=== PATIENT | female | born 1990 | race Caucasian/White ===

== ENCOUNTER 2022-11-18 11:45 | Outpatient (CLI) | payer BC, SELFPAY | END 2022-11-18 11:46 | disposition home or self-care (01) | LOC: NFLDREF 11:47 | PROVIDERS: Visit Provider Advanced Practice Midwife | DX: Z01.419 Encounter for gynecological examination (general) (routine) without abnormal findings (principal); N89.8 Other specified noninflammatory disorders of vagina; Z13.6 Encounter for screening for cardiovascular disorders | CPT/HCPCS: 80061 ==

== ENCOUNTER 2024-02-02 09:55 | Outpatient (CLI) | payer OTHER, SELFPAY | END 2024-02-02 09:56 | disposition home or self-care (01) | LOC: NFLDUCREF 10:03 | DX: R00.2 Palpitations (principal) | CPT/HCPCS: 84484; 85379 ==

== ENCOUNTER 2024-07-15 08:09 | Outpatient (CLI) | payer BC, SELFPAY ==
--- NOTE | 2024-07-15 08:15 | CRLHL7_ITS ---
For Patients: As a result of the Cures Act, medical imaging exams and procedure reports are released immediately into your electronic medical record. You may view this report before your referring provider. If you have questions, please contact your health care provider. OB ULTRASOUND INDICATION: Dating, viability. TECHNIQUE: Real time grayscale imaging of the fetus was performed. Transvaginal. LMP: 05/13/2024. JOHANN by LMP: 02/17/2025. GA: 9 w, 0 d. Previous US: No. CRL: 3.0 cm. 9 w 6 d. JOHANN: 02/11/2025. FHR: 180 BPM. Gestational sac: 4.2 cm. Appears within normal limits. Yolk sac: 4.5 mm. Appears within normal limits. Right ovary: 2.9 x 1.2 x 1.8 cm. Left ovary: 3.8 x 1.6 x 2.2 cm. CL. IMPRESSION: Single living intrauterine measuring 9 weeks 6 days and sonographic due date 02/11/2025. Fundal subchorionic hemorrhage measures 2.6 x 1.8 x 1.9 cm. Additional subchorionic hemorrhage is present measuring 2.3 x 1.4 x 1.5 cm. Emeterio Corona M.D. Diagnostic Radiologist [email or web address] BRYSON/paola guevara/Dictated by: Emeterio Corona MD @ 07/15/2024 10:54:00 AM (Electronically Signed)
== END 2024-07-15 08:10 | disposition home or self-care (01) ==
LOC: US 08:09
PROVIDERS: PCP Registered Nurse; Visit Provider Registered Nurse
DX: Z34.91 Encounter for supervision of normal pregnancy, unspecified, first trimester (principal); O20.9 Hemorrhage in early pregnancy, unspecified; Z3A.09 9 weeks gestation of pregnancy
CPT/HCPCS: 76817; 82565; 82570; 83021; 84156; 84450; 84460; 84520; 86592; 86703; 86704; 86706; 86762; 86787; 86803; 86850; 86900; 86901; 87086; 87340

== ENCOUNTER 2024-07-18 06:30 | Outpatient (CLI) | payer BC, SELFPAY | END 2024-07-18 06:31 | disposition home or self-care (01) | LOC: NFLDREF 07-19 21:47 | PROVIDERS: PCP Registered Nurse; Referring Provider Registered Nurse; Visit Provider Registered Nurse | DX: Z01.31 Encounter for examination of blood pressure with abnormal findings (principal) | CPT/HCPCS: 82570; 84156 ==

== ENCOUNTER 2024-11-22 09:30 | Outpatient (CLI) | payer BC, SELFPAY | END 2024-11-22 09:31 | disposition home or self-care (01) | LOC: NFLDREF 11-24 06:23 | PROVIDERS: Visit Provider Advanced Practice Midwife | DX: Z34.83 Encounter for supervision of other normal pregnancy, third trimester (principal) | CPT/HCPCS: 86592 ==

== ENCOUNTER 2024-12-12 17:57 | Outpatient (CLI) | payer BC, SELFPAY ==
[2024-12-12 18:19] VITALS: BP 125/81; PULSE 101; PULSE 96; O2SAT 98
[2024-12-12 18:21] VITALS: RESP 18; TEMP 36.9
--- NOTE | 2024-12-12 18:26 | CRLHL7_ITS ---
For Patients: As a result of the Century Cures Act, medical imaging exams and procedure reports are released immediately into your electronic medical record. You may view this report before your referring provider. If you have questions, please contact your health care provider. INDICATION: Vaginal bleeding in the setting of . History of placenta previa. COMPARISON: No recent prior comparison examination is available. Comparison is made to a study dated 07/15/2024. TECHNIQUE: Transabdominal and endovaginal grayscale and limited color Doppler ultrasound were performed. FINDINGS: Jeffries fetus in cephalic presentation. Anterior placenta. Amniotic fluid is normal with the deepest vertical pocket measuring 4.9 cm. heart rate is 130 beats per minute. The cervix is closed and measures 3.5 cm in length on the endovaginal component of the examination. There is a finding overlying the internal cervical os that is in continuity with an isoechoic to the anterior placenta as demonstrated on the transverse endovaginal cine clip. This is consistent with placenta previa. Incidental note is made of a 6 mm nabothian cyst within uterine cervix near the external os. IMPRESSION: Placenta previa. The cervix is closed and measures 3.5 cm in length. Dictated by Yomi Hermosillo MD @ 12/12/2024 8:16:12 PM (Electronically Signed)
--- NOTE | 2024-12-12 19:25 | W.PM.OBTRAN ---
History of Present Illness History of Present Illness Date Seen: 12/12/24 History of Present Illness: 34 year old at 31.2 weeks gestation by 1st trimester US, JOHANN 02/11/25, presents with vaginal bleeding. Isabel had bleeding that started around 1700 this evening that was scant but persisted on both a pad and with wiping. Denies clots. Reactive NST obtained. Some contractions noted on tracing after TV US was performed but she denies feeling. Appreciating good movement. States she might have a very scant amount of very light cramping but only feels it if she pays close attention. On TV US the cervix was long and closed. There was an area of bleeding noted that was about 3.5cm x 0.9cm. Decision was made to transfer to a higher level of care with NICU care and additional blood products available. Initially called [facility]. Spoke to Dr. Patricia and she recommended transferring to [facility] instead as they have a previa team. Dr. Estrella at [facility] was the accepting provider there. Will administer betamethasone IM and PO nifedipine 20mg before transfer. Baby moving naturally: Yes Bleeding: Yes Contractions: Yes (but denies feeling) Leaking fluid: No Discharge: No Heartburn: No Back pain: No Meds Home Medications and Allergies Home Medications ?Medication ?Instructions ?Recorded ?Confirmed ?Type cholecalciferol (vitamin D3) 10 10 mcg PO QDAY 11/18/22 12/12/24 History mcg (400 unit) capsule docosahexaenoic acid 200 mg mg PO 07/15/24 12/06/24 History capsule ( DHA) aspirin 81 mg chewable tablet 81 mg PO QDAY 08/12/24 12/12/24 History psyllium husk 0.4 gram capsule 0.4 g PO ONCE 09/12/24 12/12/24 History (Daily Fiber) ferrous sulfate 325 mg (65 mg 325 mg PO Q OTHER DAY 12/06/24 12/12/24 History iron) tablet (Feosol) Allergies Allergy/AdvReac Type Severity Reaction Status Date / Time Penicillins Allergy Unknown Joint Pain Verified 12/12/24 18:16 Sulfa (Sulfonamide AdvReac Unknown Rash Verified 12/12/24 18:16 Antibiotics) [facility] Medical History Vaginal delivery ?O80 - Encounter for full-term uncomplicated delivery (ICD-10) Surgical History Mousie teeth removed ?K08.409 - Partial loss of teeth, unspecified cause, unspecified class (ICD-10) Family History Grandmother Myocardial infarction Non-Hodgkin lymphoma Diabetes Paternal Grandmother Parkinsons Father High blood pressure High cholesterol Sarcoidosis Thyroid disease Grandfather Diabetes Sister Diabetes HELLP (hemolytic anemia/elev liver enzymes/low platelets in ) Social History Narrative: SOCIAL HISTORY: Education: PhD 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 Partner: Ming Relationship status Lives with: Ming and 2 kids, 2dogs and 2 cats Abuse: Denies past/present Special Diet: denies RISK FACTORS Exercise Times/wk: Depression/Anxiety: denies, some PP anxiety which resolved on its own Seat Belt Use: Smoking: Denies Alcohol/day: none currently Drug Use: Denies past/present What is your current living situation?: I presently have a place to live Problems where you live: no known problems In the past 12 months, utilities in danger of being shut off: no In past 12 months, lack of transportation kept you from medical appts, meetings, work, or getting things needed for daily living: no How hard is it for you to pay for the very basics like food, housing, medical care, and heating: not very hard In the past 12 mos, have been you worried that your food would run out before you had money to buy more?: never true In the past 12 mos, the food you bought just didn't last and you didn't have money to buy more?: never true Smoking Status: Never smoker How often does anyone, including family, friends and others, physically hurt you: never How often does anyone, including family, friends and others, insult or talk down to you: never How often does anyone, including family, friends and others, threaten you with harm: never How often does anyone, including family, friends and others, scream or curse at you: never History History 3 Elective abortions Para 2 Spontaneous abortions Hx # Term Pregnancies Ectopic pregnancies Hx # Pregnancies Multiple births Number of Living Children 2 Past Pregnancies Del. Date GA/Weeks Outcome Route wt Inf Gender Labor Lgth Anesthesia Location Provider Compli 11/27/17 39 live - full term 7 lb 7.5 oz Male none 10/18/20 39 live - full term 7 lb 14 oz Female none Delivery Date: 10/18/20 Last Updated by: Eva Shirley CNP Precipitous OB - H&P: Exam Physical Exam Vital signs: Temp Pulse Resp BP Pulse Ox 98.4 F 101 H 18 125/81 98 12/12/24 18:21 12/12/24 18:19 12/12/24 18:21 12/12/24 18:19 12/12/24 18:19 Narrative: Psychiatric:? Alert and oriented x3? HEENT:? Normocephalic, atraumatic? Neck:? Supple Lungs:? Clear to auscultation bilaterally? Heart:? Regular rate and rhythm, no murmur, rub or gallop? Abdomen:? Soft, nontender, and gravid? Extremities:? No edema or erythema? Detailed Labor and Delivery Exam Patient Gravid: yes Contraction frequency (min): 4 Tachysystole: No Contraction intensity: Mild Fetus (Single) Amniotic Membrane Status: intact Heart Rate Baseline: 135 Monitor Accelerations: Present Monitor Decelerations: None Alf Variability: Moderate (6-25) Results Ultrasound Ultrasound Impression: Tech report from 12/12/24: Single IUP, cervix 3.5cm and closed, FHR 130, hemorrhage LT of internal OS 3.5x1.2cm, previa persists post/left wall. Assessment and Plan Assessment and plan (1) Placenta previa: Status: Acute (2) Vaginal bleeding in patient after first trimester with placenta previa: Status: Acute (3) Advanced maternal age in multigravida: Status: Acute (4) Anemia: Status: Acute (5) History of precipitous delivery: Status: Acute Plan Transfer to [facility] with accepting provider Dr. Estrella. Transfer provided by EMS. Administer IM betamethasone and 20mg nifedipine before transfer. Establish IV access before transfer. Total time spent Total time spent: 45 min
[2024-12-12 19:27] VITALS: PULSE 77; O2SAT 97
[2024-12-12 19:32] VITALS: PULSE 98; O2SAT 100
[2024-12-12] MEDS: BETAMETHASONE SOD PHOS/ACETATE 6 MG/ML ML 12 MG IM (20:20)
[2024-12-12 20:50] VITALS: BP 130/66; PULSE 86; RESP 16; TEMP 36.9
[2024-12-12 20:51] VITALS: PULSE 85; O2SAT 99
--- NOTE | 2024-12-12 21:55 | PC.OBNST ---
NST Note NST Note Start: 12/12/24 18:03 Freq: ONCE Status: Active Protocol: Document 12/12/24 21:53 HONORIO (Rec: 12/12/24 21:55 HONORIO No Response) NST Note 3 Para (# of births) 2 EDC 02/11/25 Gestational Age In 31 Weeks & 2 Days Weeks & Days Patient Presented Contractions/cramping,Vaginal bleeding with Complaint(s) of Reactive Yes Appropriate for Yes Gestational Age ALTON Venegas RN Date 12/12/24 Reactive Yes Appropriate for Yes Gestational Age ALTON Beatty RN Date 12/12/24 OB NST charge Yes Complete NST Note Yes via Write Note The provider's electronic signature indicates the NST is reactive/appropriate for gestational age. *Note to provider: If an addendum is required, open the patient's chart and click on the note under the Nurse/Allied Health tab.
== END 2024-12-12 21:01 ==
LOC: OB OUT 17:57 → OB 17:58
PROVIDERS: Visit Provider Advanced Practice Midwife
DX: O47.03 False labor before 37 completed weeks of gestation, third trimester (principal); O46.93 Antepartum hemorrhage, unspecified, third trimester; Z3A.31 31 weeks gestation of pregnancy
CPT/HCPCS: 59025; 76815; 76817; 85025; G0463; A9270; J0702

== ENCOUNTER 2024-12-12 21:04 | Outpatient (CLI) | payer BC, SELFPAY | END 2024-12-12 21:05 | disposition home or self-care (01) | PROVIDERS: Visit Provider Emergency Medicine Emergency Medical Services | DX: O44.13 Complete placenta previa with hemorrhage, third trimester (principal); Z3A.31 31 weeks gestation of pregnancy | CPT/HCPCS: A0425; A0429 ==

== ENCOUNTER 2025-01-03 10:24 | Outpatient (CLI) | payer BC, SELFPAY | END 2025-01-03 10:25 | disposition home or self-care (01) | LOC: NFLDREF 10:28 | PROVIDERS: Visit Provider Obstetrics & Gynecology | DX: Z34.93 Encounter for supervision of normal pregnancy, unspecified, third trimester (principal) | CPT/HCPCS: 86694; 86695; 86696; 87081; 87491; 87591; 87653 ==

== ENCOUNTER 2025-01-16 05:54 | Inpatient (IN) | payer BC, SELFPAY ==
[2025-01-16] VITALS (18 sets, daily range): BP systolic 107–143; BP diastolic 52–103; PULSE 62–83; RESP 18; TEMP 36.4–36.9; O2SAT 95–99; BMI 31.9
[2025-01-16] MEDS: LACTATED RINGERS 1000 ML 1,000 ML 999 ML IV (06:38)
[2025-01-16 06:39] LABS: Hemoglobin* 10.6 gm/dL (12.0-16.0)
--- NOTE | 2025-01-16 07:20 | W.PM.LDBA ---
Subjective History of Present Illness Time Seen by Provider: 07:20 Date Seen: 01/16/25 Narrative: Patient is being admitted to Labor and Delivery for primary delivery. She is a 34 year old at 36.2 weeks gestation due to complete placenta previa. Her full history and physical was dictated by Dr. Jacobs on 01/09/25. Please see this for details. Active movement. Denies Ctx, LOF, vaginal bleeding or abnormal vaginal discharge. Specific Issues/Plans G 3 P 2001 Pt felt her last labor there was not good communication and things were done that she was not aware of. Wants good communication during her labor. : Ming H&P done 01/09/[address] Jacobs. # Complete Placenta Previa at 20 wk US pelvic rest follow up at 28 weeks with [facility]-11/18/24- Persistent previa. Bleeding at 31 weeks. follow up at 32 weeks with [facility]- 12/20/24- complete previa follow up at 35 weeks scheduled with [facility] Recommend delivery at 36.0-37.6 weeks but early side of that range per [facility]. Type and cross 2 units PRBCs upon admission. #Considering vaginal seeding - Explained not ACOG recommended [x] GC/chlamydia, HSV serologies and GBS obtained/sent on 01/03. HSV testing inconclusive (positive combination screen, negative subgroup testing). Patient will forego vaginal seeding. # Vaginal bleeding at 31wks. Transferred to [place] Received 2 doses of Betamethasone. # Measuring large for gestational age, [facility] recommended changing JOHANN to first trimester US date EFW >99% even with dating adjusted Growth at 28 weeks EFW >99% at 32wks. AC >99%, # Precipitous . Patient reports she delivered 2 hours after waking up with contractions with her 2nd baby. # Anemia Hgb 10.7 at 28 weeks- started iron supplement got 2 iron infusions while inpatient at - stopped oral supplement Hgb 34 weeks: don't collect due to IV iron transfusion 12/15 - done erroneously, 10.9 Received iron transfusion at [place] with hospitalization. # Advanced maternal age NIPT: low risk Level 2 ultrasound order placed Daily low-dose aspirin starting at 12 weeks to reduce risk of preeclampsia due to AMA and sister with a history of HELLP # Subchorionic hemorrhage x2 Awaiting last delivery notes from [place] in 2021. Imagin11/18/24: 27w6d TVUS f/u-persistent previa, limited anatomy survey normal, EFW 96%, normal ELISABETH 01/10/2025 MFM: Anterior/left lateral complete placenta previa, MVP 6.4 cm, EFW 3281 g (95%), AC >99%. Vaccinations: COVID: 10/31/24 () - Pt would like [id number] when she can get updated version. Can't get until 01/31/25 - 3 months per Zeeshan Flu: 12/14/2024 - when she was in the hospital - date per WENDI Tdap: 11/05/24 RSV: 12/20/2024 GBS negative 32 week mental health: 12/20/2024 Last pap: [Only high-risk abnormal pap results in problem list] OB - Problem Based A/P Additional Plan (1) Placenta previa: Status: Acute (2) : Status: Acute (3) Advanced maternal age in multigravida: Status: Acute Plan - Reviewed surgical consent with patient. She understands that the four main categories of risk include pain, bleeding, infection, and damage to surrounding structures. Intraoperative pain will be manage with spinal anesthesia or epidural anesthesia. If that those are not effective or not appropriate for the clinical situation, general anesthesia will be administered. Immediately postop, TAP block will be performed. Anesthesia team will reviewed this in further details with her. Throughout her recovery course, she will have on PO pain medications such as ibuprofen, Tylenol, and oxycodone. Patient is hoping to avoid oxycodone. Reassured her that she does not need to take it if she does not want to but encouraged her to treat her pain. Regarding infection, she understands that we will be delivering appropriate antibiotics, however that the risk of infection following section still is approximately 5%. She understands that though the risk is very low that there is always a risk of damage to the bladder, uterus, ovaries, fallopian tubes, bowels, ureters, or even the fetus (<1%). She understands that most injuries can be addressed at the time of surgery, however, such an injury may require additional surgeries to fix. She understands that a section carries a risk of bleeding (1-5% risk of hemorrhage), and that while this bleeding can be addressed with multiple medical and surgical modalities (including hysterectomy), that there is the possibility of needing a blood transfusion (0.5-3%). For her there is a high risk of blood loss given where her placenta is. She does have 2 u pRBC types and crossed. She understands that a section does increase risks for future pregnancies and deliveries including, but not limited to, the risk of uterine rupture or placenta accreta. Lastly, VTE after delivery rate is around <1%. Will decrease this risk with SCD use, early ambulation, and thromboprophylaxis medication if needed. We also reviewed postoperative care, recovery, and restrictions. All questions answered to patient's satisfaction and the best of my abilities. Consent form signed and will proceed with delivery via section. - Hgb 10.6 gm/dL - Plt 185 K/uL - T&S: A+, antibody negative - Plan: Will proceed with primary delivery. OB Exam Physical Exam Vital signs: Pulse BP Pulse Ox 80 128/57 L 98 01/16/25 06:17 01/16/25 06:17 01/16/25 06:17 Narrative: Physical exam: General: No acute distress Psych: Alert and oriented x3, full affect HEENT: Normocephalic, atraumatic Lungs: Unlabored breathing Neuro: No focal deficit. Mentating appropriately Pelvic exam: Deferred
[2025-01-16 07:24] LABS: Hematocrit* 31.7 % (33.0-51.0); Hemoglobin* 10.6 gm/dL (12.0-16.0); Immature Granulocytes Abs Auto 0.02 K/uL (0.00-0.30); Immature Granulocytes Pct Auto 0.2 %; Lymphocytes Absolute Auto 2.82 K/uL (0.90-2.90); Mean Corpuscular HGB Conc 33 gm/dL (32-36); Mean Corpuscular Hemoglobin 29 pg (26-34); Mean Corpuscular Volume 88 fL (80-100); RDW Coefficient of Variation % 14.5 % (11.5-15.5); Red Blood Count* 3.61 m/uL (4.00-5.20); White Blood Count* 9.58 K/uL (4.50-11.00)
[2025-01-16 07:26] LABS: Slide Review Reflex No
[2025-01-16] MEDS: LACTATED RINGERS 1000 ML 1,000 ML 150 ML IV (07:35)
--- NOTE | 2025-01-16 08:34 | P.OBPRC_ITS ---
Procedure Time Seen by Provider: 07:00 Date of procedure: 01/16/25 Will [facility] bill your pro fee for this procedure?: Yes Procedure Description: DELIVERY BY SECTION Date of Service: 01/16/25 Delivery time: 0756 Summary: Admitted for scheduled delivery at 36.2d, Primary Lower uterine transverse section, Pfannenstiel, Closed with sutures, QBL 873 cc, No complications, Findings: Normal uterus, bilateral ovaries and tubes. Placenta previa noted. 75% of placenta delivered spontaneous with steady cord traction. 25% of placenta delivered via manual sweep. 8/9, weight 2950 g. Primary Indication: 1. Complete placenta previa Procedures: Primary Lower uterine transverse section Specimens Removed: Placenta Surgeon: Bev Parada MD Director Of Strategic Alliances: CRISTÓBAL Murray Anesthesia: Spinal Report: Prophylactic antibiotic, 2 g of Ancef was given before patient was taken to OR. After arrival to the operating room patient was placed in the supine position with left lateral tilt after administration of spinal anesthesia. She was prepped and draped in the usual sterile manner. Laparotomy A pfannenstiel incision was made through the anterior abdominal wall with #10 scalpel approximately 2 cm above the pubic symphysis. The incision was extended sharply with the #10 scalpel through the subcutaneous tissue to the level of fascia. The fascia was entered sharply with a #10 scalpel (Pfannenstiel) in the midline and extended in semi-elliptical fashion bluntly with digits. The rectus muscles were in the midline bluntly with digits. The peritoneum was then entered bluntly. The peritoneal incision was then extended superiorly and inferiorly under direct visualization with care being taken to avoid bladder and bowel. No adhesions were noted. The peritoneal incision was enlarged bluntly by lateral traction from the surgeon's and assistant professor of anthropology's hand. Maxx retractor was inserted into the abdomen. Delivery A bladder flap was developed by grasping with Indonesian forcep and enter with Metzenbaun scissor. Then sharp and blunt dissection with Metzenbaum scissor and fingers were performed. A low transverse hysterotomy was made then with #10 scalpel and extended laterally and cephalad with fingers in a low transverse fashion with Manu Sal technique with care being taken to avoid injury to the fetus. Anterior placenta was in the way. I wrapped my hand around to bring head to the hysterotomy. The amniotic cavity (membrane) was then entered with spontaneous rupture of membrane, and the amniotic fluid was noted to be clear, fetus was delivered cephalic. With delivery of the baby, no extension was noted. 75% of Placenta was delivered spontaneously with steady traction on cord and the 25% of the placenta on the left uterine corner required a manual sweep for separation of placenta from uterine wall. Closure Uterine cavity was cleaned after placental delivery with lap sponge x 4. No excessive bleeding noted. The hysterotomy was closed in two layers with stitches using 0 vicryl with continuous locking stitches and 0 monocryl in a continuous non locking manner. One figure [address] with 0 Vicryl in the middle of the hysterotomy. Hemostasis was achieved as needed with electrocautery. The ovaries/tubes/uterine surface were evaluated. They were found to be normal. Maxx retractor removed. Vitaly applied and hemostasis was confirmed again. Fascia was closed with running stitches using 0 vicryl. Subcutaneous layer was irrigated. Hemostasis was checked for and found to be adequate. The subcutaneous layer was closed with running 2-0 vicryl sutures. The skin was closed with 4-0 monocryl subcuticular sutures . The incision was cleaned, Exofin applied, and Mepilex dressing placed. The procedure considered terminate at this time. Intraoperative Complications: None QBL: 873 cc Uterotonics/hemostatic agents: 40 u of pitocin, 800 mcg of misoprostol, 1g of TXA Disposition: The patient tolerated the procedure well. She was recovered in Obstetric PACU for close monitoring in stable condition, with a contracted uterus and normal transvaginal bleeding. The infant was sent to mother?s bedside. The placenta was sent to pathology to rule of PAS. Debrief with OR team performed and specimen reviewed at the conclusion of the procedure.
[2025-01-16] MEDS: miSOPROStoL 800 MCG/4 TABLET PR (08:43)
--- NOTE | 2025-01-16 09:20 | P.ANES_ITS ---
Anesthesia Charges Start Date/Time Anesthesia Start Date: 01/16/25 Anesthesia Start Time: 07:27 Stop Date/Time Anesthesia Stop Date: 01/16/25 Anesthesia Stop Time: 09:02 Coding CPT Codes CPT Codes: ANESTH CS DELIVERY - 84629 ([id number]) P2 - PATIENT W/MILD SYST DISEASE, QK - LEVELER 2-4 CNCRNT ANES PROC, QX - CHIP MACHINE OPERATOR SVC W/ MD MED DIRECTION
--- NOTE | 2025-01-16 09:20 | W.ANESCHARGE ---
Anesthesia Charges Start Date/Time Anesthesia Start Date: 01/16/25 Anesthesia Start Time: 07:27 Stop Date/Time Anesthesia Stop Date: 01/16/25 Anesthesia Stop Time: 09:02 Coding CPT Codes CPT Codes: ANESTH CS DELIVERY - 94508 ([id number]) P2 - PATIENT W/MILD SYST DISEASE, QK - SUPERVISOR VENEER 2-4 CNCRNT ANES PROC, QX - SUPERVISOR GLYCERIN SVC W/ MD MED DIRECTION
--- NOTE | 2025-01-16 09:21 | P.NB_ITS ---
Nerve Block Nerve Block Time Seen by Provider: 08:45 Date Seen: 01/16/25 Type of block requested by surgeon for post-operative analgesia: TAP Side: bilateral Time out performed: Yes Verification of patient name: Yes Verification of date of : Yes Site marking: site marked Name of person performing procedure: RPS Continuous monitoring Was continuous monitoring of O2 sat, B/P, athletic monitor, recorded every 15 minutes?: Yes Procedure Checklist: sterile prep, needles and gloves Ultrasound guided. Images saved: Yes Medications given in 5ml increments after negative aspiration: Marcaine %: 0.25 mL: 30 and Exparel mL: 10 Patient tolerated procedure well: Yes Block Charges Block Charge (with Pro Fee): TAP Bilateral Use of Ultrasound Machine for Block: Yes- US Guidance/pain block
--- NOTE | 2025-01-16 09:39 | P.ANES_ITS ---
Anesthesia Charges Start Date/Time Anesthesia Start Date: 01/16/25 Anesthesia Start Time: 07:27 Stop Date/Time Anesthesia Stop Date: 01/16/25 Anesthesia Stop Time: 09:02 Coding CPT Codes CPT Codes: ANESTH CS DELIVERY - 63473 ([id number]) QK - QUILL REAMER 2-4 CNCRNT ANES PROC, QX - PROFESSOR OF LATIN AMERICAN STUDIES SVC W/ MD MED DIRECTION, P2 - PATIENT W/MILD SYST DISEASE
--- NOTE | 2025-01-16 09:39 | W.ANESCHARGE ---
Anesthesia Charges Start Date/Time Anesthesia Start Date: 01/16/25 Anesthesia Start Time: 07:27 Stop Date/Time Anesthesia Stop Date: 01/16/25 Anesthesia Stop Time: 09:02 Coding CPT Codes CPT Codes: ANESTH CS DELIVERY - 80829 ([id number]) QK - MALE IMPERSONATOR 2-4 CNCRNT ANES PROC, QX - CANNONEER SVC W/ MD MED DIRECTION, P2 - PATIENT W/MILD SYST DISEASE
[2025-01-16] MEDS: ACETAMINOPHEN 500 MG TABLET 1000 MG PO ×2 (12:05→17:55)
[2025-01-17] MEDS: ACETAMINOPHEN 500 MG TABLET 1000 MG PO ×4 (00:07→22:51)
[2025-01-17 00:10] VITALS: BP 121/79; PULSE 53; RESP 16; TEMP 36.6; O2SAT 97
[2025-01-17 04:57] VITALS: BP 111/71; PULSE 60; RESP 16; TEMP 36.6; O2SAT 98
[2025-01-17 07:02] LABS: Hemoglobin* 8.9 gm/dL (12.0-16.0)
--- NOTE | 2025-01-17 07:33 | P.OBPN_ITS ---
OB - PN:Subj Subjective Date Seen: 01/17/25 Narrative: Isabel is a 34 y.o. G 3 P 3 who was admitted to L & D for primary c/s for placenta previa. ?She had a section that was uncomplicated. The patient feels well. ?The pain is well controlled with current medications. ?She has no n ew complaints. ?She is breast feeding and reports things are going well. the patient has done well.? Vitals have been stable.? She has remained afebrile.? Has a good appetite, is tolerating a general diet. ?She is voiding without difficulty.? She is passing gas and has not had a bowel movement.? She is ambulating and denies any dizziness.? Has small amount of rubra lochia. Problems: Anemia OB - PN: Obj Exam Physical Exam: Vital signs: Temp Pulse Resp BP Pulse Ox O2 Del Method 97.9 F 60 16 111/71 98 Room Air 01/17/25 04:57 01/17/25 04:57 01/17/25 04:57 01/17/25 04:57 01/17/25 04:57 01/17/25 04:57 Narrative: GENERAL APPEARANCE:? normal affect, alert, no distress MOOD:? appropriate CHEST:? clear to auscultation HEART:? regular rate and rhythm ABDOMEN:? soft, non-tender the uterine fundus is At Umbilicus, Midline and is appropriate for the stage of recovery. EXTREMITIES:? normal and no edema INCISION: Dressing removed; Healing well, no surrounding erythema, abnormal induration or discharge OB - PN: Obj Data Labs Labs: Laboratory Results - last 24 hr 01/16/25 01/17/25 06:30 06:45 Hgb 8.9 L Blood Type A Positive Antibody Screen NEGATIVE Crossmatch (AHG) See Detail OB - PN: A/P Delivery Assessment and Plan (1) care and examination immediately after delivery: Status: Acute (2) Status post section: Status: Acute (3) Anemia due to acute blood loss: Status: Acute (4) Lactating mother: Status: Acute (5) Elevated blood pressure reading without diagnosis of hypertension: Status: Acute Plan day: 1 Plan: routine care Comments: Routine post-op , may see if needed? Hgb 8.9. Iron supplement ordered orally every other day? Elevated BP in recovery post c/s, has been normotensive since Will continue to monitor BP and do labs if indicated Anticipate discharge tomorrow or the following day?
[2025-01-17] MEDS: FERROUS SULFATE 325 MG TABLET PO (08:20)
[2025-01-17] MEDS: DOCUSATE SODIUM 100 MG CAPSULE PO (08:21)
[2025-01-17 08:30] VITALS: BP 121/76; PULSE 76; RESP 16; TEMP 36.8; O2SAT 97
[2025-01-17 14:53] VITALS: BP 114/69; PULSE 74; RESP 16; TEMP 36.6; O2SAT 97
[2025-01-17 16:57] VITALS: BP 123/81; PULSE 77; RESP 16; O2SAT 97
[2025-01-17] MEDS: IBUPROFEN 600 MG TABLET PO (21:06)
[2025-01-17 23:40] VITALS: BP 121/70; PULSE 73; RESP 16; TEMP 36.6; O2SAT 98
[2025-01-18] MEDS: IBUPROFEN 600 MG TABLET PO ×2 (03:58→10:17)
[2025-01-18] MEDS: ACETAMINOPHEN 500 MG TABLET 1000 MG PO (05:24)
[2025-01-18 07:47] VITALS: BP 117/71; PULSE 73; RESP 19; TEMP 36.8; O2SAT 96
[2025-01-18] MEDS: DOCUSATE SODIUM 100 MG CAPSULE PO (08:03)
--- NOTE | 2025-01-18 08:06 | P.DS_ITS ---
DS: Providers Provider Time Seen by Provider: 08:00 Date Seen: 01/18/25 Date of admission: 01/16/25 05:54 Primary care physician: Not a Local Provider Admitting Clinician: Bev Parada MD Attending Physician on discharge: Natalie Ward CNM Date of Discharge: 01/18/25 DS: Diagnosis Discharge Diagnosis (1) care and examination immediately after delivery: Status: Acute (2) Status post section: Status: Acute (3) Anemia due to acute blood loss: Status: Acute (4) Lactating mother: Status: Acute (5) Elevated blood pressure reading without diagnosis of hypertension: Status: Acute Exam Narrative: Exam Narrative: Constitutional: no apparent distress Respiratory: no labored breathing, lungs clear to auscultation Cardiovascular: regular heart rate and rhythm, BP normal at this time Abdomen: soft, tender, uterine fundus is firm, midline, 3cm below umbilicus. Appropriate for this stage of healing Incision: low transverse incision with surgical glue, Clean, Dry and Intact, no redness Extremities: full sensation, no edema Mood: appropriate Const: Vital Signs, click to edit/add: Vital Signs - 24 hr 01/17/25 08:30 01/17/25 14:53 01/17/25 16:57 Temperature 98.3 F 97.8 F Pulse Rate [Pulse Oximeter] 76 74 77 Respiratory Rate 16 16 16 Blood Pressure [Ri ght Arm] 121/76 114/69 123/81 Pulse Oximetry 97 97 97 Oxygen Delivery Me thod Room Air Room Air Room Air 01/17/25 23:40 01/18/25 07:47 Temperature 97.8 F 98.3 F Pulse Rate [Pulse Oximeter] 73 73 Respiratory Rate 16 19 Blood Pressure [Ri ght Arm] 121/70 117/71 Pulse Oximetry 98 96 Oxygen Delivery Me thod Room Air Room Air OB - DS: Summary Hospital Course Hospital Course: Discharge Subjective? Isabel is a 34 y.o. G 3 P 3 who was admitted to L & D for scheduled primary for complete placenta previa at 36 weeks.? She had a section that was uncomplicated. The patient feels well and is figuring out recovery post versus post vaginal births, like she's had in the past.?Pain is controlled with current medications.?Used oxycodone PP day 1 but not since. Doing well with ibuprofen and tylenol and ice. Nurse will assist with abdominal binder. Incision pulls and is tender but all WNL. She is breast feeding and reports things are going well. Feels engorgement and milk transitioning from colostrum to mature milk. baby but nursing well with nipple shield and topping off with spoon feeding hand expressed colostrum. Elevated blood pressures initially after but did not sustain. No vision changes, severe headache, RUQ pain, swelling, or nausea or vomiting.? She has remained afebrile.? Has a good appetite, is tolerating a general diet.? She is voiding without difficulty.? She is passing gas and has not had a bowel movement. She is ambulating and denies any dizziness.? Has scant amount of rubra lochia. She is planning IUD for prevention, likely Kyleena.? ?? Problems: elevated blood pressure without hypertension diagnosis? ?? plan:? Plan to stay today as house guest with new baby as inpatient for another night will bring in tylenol and ibuprofen for pain management 600mg Ibuprofen and Colace prescribed as requested for home. Declined Oxycodone prescription. Follow up in 1 week for incision check with OBs Follow up in 2 weeks and 6 weeks.? , may see if needed? Hgb 8.9. continue iron supplement ordered orally every other day for at least 2 weeks Labs WNL or stable with trending? Avtar Petty APRN, FARRAH, was present for visit and have reviewed and agree with documentation by the Certified Nurse Midwifery Student.? Peripartum Data delivery method: Primary C/S; Non-Labored Laceration description: None Episiotomy description: None Procedures: Procedures Operation Date: 01/16/25 07:15 Actual Procedure Side Surgeon p Primary Section FOR PLACENTA PREVIA Bev Parada MD complications: none Infant Gender: Male Discharge Plan: Home (likely tomorrow) Status at Discharge Functional status at discharge: independent ambulation Overall status at discharge: patient is progressing back to baseline Time Spent with Patient Time attestation: Total time spent providing and/or coordinating discharge services: Time spent: Less than 30 minutes Discharge Plan Discharge Disposition: Home, Self-Care Date of Admission: 01/16/25 05:54 Attending Provider on Discharge: Natalie Ward Primary Care Provider: Provider,Not a Local Condition: Stable Anticipated Discharge Date/Time: 01/18/25 11:00 Discharge Medications: New ibuprofen 600 mg tablet 600 mg PO Q6H PRNQty: 60 0RF docusate sodium 100 mg tablet 100 mg PO BID PRNQty: 60 0RF Continued cholecalciferol (vitamin D3) 10 mcg (400 unit) capsule 10 mcg PO QDAY psyllium husk [Daily Fiber] 0.4 gram capsule 0.4 g PO ONCE ferrous sulfate [Feosol] 325 mg (65 mg iron) tablet 325 mg PO Q OTHER DAY DHA 200 mg capsule 200 mg PO DAILY docusate sodium [Colace] 100 mg capsule 100 mg PO DAILY Discontinued aspirin 81 mg tablet,chewable 81 mg PO QDAY Discharge Orders: Discharge Order (Routine); Ordered 01/18/25 Ordered By: Natalie Ward Patient Education: OB Over the Counter Medication Information, OB /Breast Feeding Additional Instructions: Discharge instructions were reviewed with the patient including signs and symptoms of infection and home going medications Lifting Restrictions: 20 pounds for 6 weeks No not submerge incision under water X 2 weeks? Nothing vaginally for 6 weeks: no tampons or intercourse Do not drive while taking narcotic pain medication(s) Off Work or School for 6 weeks Symptoms to report to doctor: * Bleeding that saturates more than one pad per hour * Passing clots larger than the size of a golf ball * Pain not relieved by prescribed medication * Fever above 100.4 degrees Fahrenheit * A foul vaginal odor * Difficulty in emotions, mood, and functions * Thoughts of hurting yourself and/or * Painful, reddened area in your breast * Any drainage, redness, or tenderness in your IV/epidural site * Severe headache that doesn't improve after taking medications * Changes in vision, including temporary loss of vision, blurred vision, and/or light sensitivity * Upper abdominal pain (usually under ribs on the right side) * Decrease in urination or painful, frequent urinating * Chest pain * Shortness of breath * Tenderness or pain with redness and/swelling in the calf(s) of your leg 1-2-week visit: incision check, discuss infant feeding concerns, review control options and screen for anxiety/depression. 6-week visit for an annual exam. consultation services are available to all mothers and babies for the first year after delivery.? To make an appointment, please call [phone]. Activity Level: Light activity Discharge Diet: Regular Follow Up Appointments: [facility] [Provider Group] Forms: [facility] Info Instructions
== END 2025-01-18 12:16 | disposition home or self-care (01) | DRG 540 ==
PROVIDERS: Obstetrics & Gynecology; Admitting Provider Obstetrics & Gynecology; Visit Provider Obstetrics & Gynecology
PROC: 10D00Z1 Extraction of Products of Conception, Low, Open Approach (ICD-10-PCS; CPT 59514; principal; 2025-01-16 07:15)
DX: O44.03 Complete placenta previa NOS or without hemorrhage, third trimester (principal); O99.02 Anemia complicating childbirth; D62 Acute posthemorrhagic anemia; G89.18 Other acute postprocedural pain; R03.0 Elevated blood-pressure reading, without diagnosis of hypertension; Z3A.36 36 weeks gestation of pregnancy; Z37.0 Single live birth
CPT/HCPCS: 01961; 36415; 64488; 76942; 85018; 85025; 86592; 86850; 86900; 86901; 86922; 88307; A4314; A9270; J0665; J0666; J0690; J1100; J1885; J2371; J2405; J2590; J7120

== ENCOUNTER 2025-01-22 09:29 | Emergency (ER) | payer BC, SELFPAY ==
--- OUTSIDE RECORDS SUMMARY | 2024-12-20 09:00 | XMS_ITS | Encounter Summary ---
Author Organization [facility] Address [address] [place] [id number] Care Team Providers Care [employer] Financial Developer Name Role Phone No Ref-Primary, Physician Primary Care Provider Tabby Park MD Unavailable [phone] Reason for Referral * Diagnostic Imaging Ultrasound (Routine) - Pending Review Specialty Diagnoses / Procedures Referred By Jacob christine Referred To Contact Radiology. Diagnoses Complete placenta previa nos or without hemorrhage, second trimester Procedures [facility] US Comprehensive Single F/U Tabby Park MD [address] [address] Phone: tel: fax: Referral ID Status Reason Start Date Expiration Date V isits Requested Visits Authorized [id number] Pending Review 11/18/2024 11/18/2025 1 1 Reason for Visit * Diagnostic Imaging Ultrasound (Routine) - Pending Review Specialty Diagnoses / Procedures Referred By Jacob christine Referred To Contact Radiology. Diagnoses Complete placenta previa nos or without hemorrhage, second trimester Procedures [facility] US Comprehensive Single F/U Tabby Park MD [address] [place] [address] Phone: tel: fax: Referral ID Status Reason Start Date Expiration Date V isits Requested Visits Authorized [id number] Pending Review 11/18/2024 11/18/2025 1 1 Encounter Details Date Type Department Care Team (Latest Contact Info) Description 12/20/2024 10:00 AM CDT - 12/20/2024 11:59 PM CDT Hospital Encounter [facility] [address] [place] [address] Lorenzo Choi MD [address] [place] [address] Complete placenta previa nos or without hemorrhage, second trimester Discharge Disposition: Home or Self Care Social History Tobacco Use Types Packs/Day Years Used Date Smoking Tobacco: Never Assessed Estimated Date of Delivery Comme nts Yes 02/11/2025 Based on Ultraso und Sex and Gender Information Value Date Recorded Sex Assigned at Not on file Legal Sex Female 1:23 PM CDT Gender Identity Not on file Sexual Orientation Not on file documented as of this encounter Plan of Treatment Not on file documented as of this encounter Procedures Procedure Name Priority Date/Time Associated Diagnosis Comments [facility] US COMPREHENSIVE SINGLE F/U Routine 12/20/2024 10:45 AM CDT Complete placenta previa nos or without hemorrhage, second trimester documented in this encounter Results * [facility] US Comprehensive Single F/U (12/20/2024 10:45 AM CDT) Anatomical Region Laterality Modality Ultrasound 12/20/2024 9:56 AM CDT Impressions 12/20/2024 11:32 AM CDT IMPRESSION ----- 1. Jeffries at 32w 3d gestational age. 2. None of the anomalies commonly detected by ultrasound were evident in the limited anatomic survey as described above. 3. Growth parameters and estimated weight were ahead of gestational age. EFW > 99%ile. 4. The amniotic fluid volume appeared normal. 5. On TVUS there is a complete placenta previa, with a closed and long cervical length of 39 mm. 6. There are no sonographic findings at this time which are concerning for an increased risk of placenta accreta spectrum. Narrative 12/20/2024 11:32 AM CDT Comp Follow Up ----- Pat. Name: ISABEL MORALES Study Date: 12/20/2024 9:56am Pat. 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 (Transvaginal ultrasound examination was required to adequately complete the exam.). View: Sufficient ----- Jeffries . Number of fetuses: 1 DATING ----- Date Details Gest. age JOHANN LMP 05/13/2024 Cycle: <3 cycles after discontinuation of IUD 31 w + 4 d 02/17/2025 Previous U/S 07/15/2024 GA, GA 9 w + 6 d 32 w + 3 d 02/11/2025 U/S 12/20/2024 based upon AC, BPD, Femur, HC 34 w + 3 d 01/28/2025 Assigned dating based on ultrasound (GA), selected on 10/03/2024 32 w + 3 d 02/11/2025 GENERAL EVALUATION ----- Cardiac activity present. FHR 136 bpm. movements: present. Presentation: cephalic Placenta: Anterior/left lateral, previa Umbilical cord: 3 vessel cord Amniotic fluid: Amount of AF: normal. MVP 6.0 cm PLACENTA ACCRETA SPECTRUM ASSESSMENT History of Delivery: No History of Prior Uterine Surgery or Curretage: No Placenta location: complete previa Placenta Previa: complete Second and Third Trimester Markers Placental lucane: none seen Abnormal uteroplacenta interface: not seen Abnormal uterine contour placental bulge): not seen Exophytic mass: not seen Bridging vessels: not seen Impression: Normal placentation but complete previa BIOMETRY ----- BPD 79.7 mm 32w 0d Hadlock OFD 110.7 mm 33w 2d Nicolaides HC 304.8 mm 33w 6d Hadlock Cerebellum tr 41.6 mm 35w 4d Nicolaides AC 329.2 mm 36w 6d >99% Hadlock Femur 67.8 mm 34w 6d Hadlock Weight Calculation: EFW 2,684 g >99% Hadlock EFW (lb,oz) 5 lb 15 oz EFW by Hadlock ([id number]) Head / Face / Neck Biometry: Switchboard Clerk 4.3 mm CM 6.6 mm ANATOMY ----- The following structures appear normal: Head / Neck Cranium. Head size. Head shape. Lateral ventricles. Midline falx. Cavum septi pellucidi. Cerebellum. Cisterna magna. Thalami. Heart / Thorax 4-chamber view. RVOT view. LVOT view. 9-[id number] view. Diaphragm. Abdomen Stomach. Kidneys. Bladder. Spine Cervical spine. Thoracic spine. Lumbar spine. Sacral spine. The following structures were documented previously: Face Lips. Profile. Nose. sex: male. MATERNAL STRUCTURES ----- Cervix Visualized Appearance: Appears Closed Approach - Transvaginal: Cervical length 39.6 mm Funneling absent Cervical cerclage absent Right Ovary Not examined Left Ovary Not examined RECOMMENDATION ----- Thank you for referring your patient for ultrasound assessment. I discussed the findings on today's ultrasound with the patient. She has a persistent placenta previa with recent hospitalization for vaginal bleeding. The delivery range for previa is 48p0l-28s3u but given her bleeding I recommend scheduling her section in the earlier range. She did get a betamethasone course last week during her hospitalization, so she likely will not need rescue betamethasone given her anticipated in the 36th weeks. She would like to at [facility]. She also requests one last US around 35 weeks, with MFBrian, to confirm that the previa has not resolved. As she has had two prior vaginal births and prefers to avoid a unless absolutely necessary, this is not an unreasonable request and we have scheduled this last US. Return to primary provider for continued care. If you have questions regarding today's evaluation or if we can be of further service, please contact the [facility]. anomalies may be present but not detected I spent a total of 22 minutes (excluding the ultrasound interpretation) on the date of this encounter including preparing to see the patient (reviewing medical records/tests), in direct denp-uj-glij contact with the patient counseling and discussing the plan of care, documenting the visit in the electronic medical record, and communicating with other health inpatient care manager rn and/or care coordination. Procedure Note Lorenzo Choi MD - 12/20/2024 Comp Follow Up ----- Pat. Name: ISABEL MORALES Study Date: 12/20/2024 9:56am Pat. 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 View: Sufficient ----- Jeffries . Number of fetuses: 1 DATING ----- DateDetailsGest. age JOHANN LMP 05/13/2024ycle: <3 cycles after discontinuation of IUD31 w + 4 d 02/17/2025 Previous U/S 07/15/2024 GA, GA9 w + 6 d32 w + 3 d 02/11/2025 U/S 12/20/2024ased upon AC, BPD, Femur, HC34 w + 3 d 01/28/2025 Assigned dating based on ultrasound (GA), selected on10/03/2024 32w + 3 d 02/11/2025 GENERAL EVALUATION ----- Cardiac activity present. FHR 136 bpm. movements: present.Presentation: cephalic Placenta: Anterior/left lateral, previa Umbilical cord: 3 vessel cord Amniotic fluid: Amount of AF: normal. MVP 6.0 cm PLACENTA ACCRETA SPECTRUM ASSESSMENT History of Delivery: No History of Prior Uterine Surgery or Curretage: No Placenta location: complete previa Placenta Previa: complete Second and Third Trimester Markers Placental lucane: none seen Abnormal uteroplacenta interface: not seen Abnormal uterine contour placental bulge): not seen Exophytic mass: not seen Bridging vessels: not seen Impression: Normal placentation but complete previa BIOMETRY ----- BPD 79.7mm 32w 0dHadlock OFD 110.7mm 33w 2dNicolaides HC 304.8mm 33w 6dHadlock Cerebellum tr 41.6mm 35w 4dNicolaides AC 329.2mm 36w 6d >99%Hadlock Femur 67.8mm 34w 6dHadlock Weight Calculation: EFW 2,684g >99%Hadlock EFW (lb,oz) 5 lb 15oz EFW by Hadlock([id number]) Head / Face / Neck Biometry: Switchboard Clerk 4.3mm CM 6.6mm ANATOMY ----- The following structures appear normal: Head / Neck Cranium. Head size. Head shape.Lateral ventricles. Midline falx. Cavum septi pellucidi. Cerebellum.Cisterna magna. Thalami. Heart / Thorax 4-chamber view. RVOT view. LVOT view.4-guechh-smtaxub view. Diaphragm. Abdomen Stomach. Kidneys. Bladder. Spine Cervical spine. Thoracic spine.Lumbar spine. Sacral spine. The following structures were documented previously: Face Lips. Profile. Nose. sex: male. MATERNAL STRUCTURES ----- Cervix Visualized Appearance: Appears Closed Approach - Transvaginal:Cervical length 39.6 mm Funneling absent Cervical cerclage absent Right Ovary Not examined Left Ovary Not examined RECOMMENDATION ----- Thank you for referring your patient for ultrasound assessment. Idiscussed the findings on today's ultrasound with the patient. She has a persistent placenta previa with recent hospitalization forvaginal bleeding. The delivery range for previa is 23m4c-92v5f but givenher bleeding I recommend scheduling her section in the earlier range. She did get a betamethasone course last week during her hospitalization,so she likely will not need rescue betamethasone given her anticipatedbirth in the 36th weeks. She would like to at [facility]. She also requests one lastUS around 35 weeks, with MFM, to confirm that the previa has not resolved.As she has had two prior vaginal births and prefers to avoid a unlessabsolutely necessary, this is not an unreasonable request and we havescheduled this last US. Return to primary provider for continued care. If you have questions regarding today's evaluation or if we can be offurther service, please contact the [facility]. anomalies may be present but not detected I spent a total of 22 minutes (excluding the ultrasound interpretation) onthe date of this encounter including preparing to see the patient(reviewing medical records/tests), in direct tjti-qa-vqtn contact with the patient counseling and discussingthe plan of care, documenting the visit in the electronic medical record,and communicating with other health inpatient care manager rn and/or care coordination. IMPRESSION ----- 1. Jeffries at 32w 3d gestational age. 2. None of the anomalies commonly detected by ultrasound were evident inthe limited anatomic survey as described above. 3. Growth parameters and estimated weight were ahead of gestationalage. EFW > 99%ile. 4. The amniotic fluid volume appeared normal. 5. On TVUS there is a complete placenta previa, with a closed and longcervical length of 39 mm. 6. There are no sonographic findings at this time which are concerning lulu increased risk of placenta accreta spectrum. us Tabby Park MD [facility] US ORDERABLES Edited Re sult - Final documented in this encounter Visit Diagnoses Diagnosis Complete placenta previa nos or without hemorrhage, second trimester documented in this encounter Care Teams [employer] Financial Developer Relationship Specialty Start Date End Date No Ref-Primary, Physician PCP - General 09/12/24 Tabby Park MD [address] [facility] [address] [place] [address] Assigned OBGYN Provider 12/13/24 documented as of this encounter
--- OUTSIDE RECORDS SUMMARY | 2024-12-20 09:30 | XMS_ITS | Encounter Summary ---
Author Organization [place] Address [address] [place] [address] Care Team Providers Care Tube Roller Name Role Phone No Ref-Primary, Physician Primary Care Provider Tabby Park MD Unavailable [phone] Reason for Referral * Diagnostic Imaging Ultrasound (Routine) - Pending Review Specialty Diagnoses / Procedures Referred By Contac t Referred To Contact Radiology. Diagnoses Placenta previa in third trimester Procedures [facility] US Comprehensive Single F/U Lorenzo Choi MD [address] [place] [address] Phone: tel: fax: Referral ID Status Reason Start Date Expiration Date V isits Requested Visits Authorized [id number] Pending Review 12/20/2024 12/20/2025 1 1 Reason for Visit * Reason Comments Ultrasound RL2/TV- Complete Pre via-Recent admission with 1st bleed Encounter Details Date Type Department Care Team (Late st Contact Info) Description 12/20/2024 10:30 AM CDT Office Visit [facility] [place] [address] [place] [address] Lorenzo Choi MD [address] [place] [address] Placenta previa in third trimester (Primary Dx); Placenta previa in second trimester Social History Tobacco Use Types Packs/Day Years Used Date Smoking Tobacco: Never Assessed Estimated Date of Delivery Comme nts Yes 02/11/2025 Based on Ultraso und Sex and Gender Information Value Date Recorded Sex Assigned at Not on file Legal Sex Female 1:23 PM CDT Gender Identity Not on file Sexual Orientation Not on file documented as of this encounter Progress Notes * Lorenzo Choi MD - 12/20/2024 10:30 AM CDT Please see full imaging report from ViewPoint program under imaging tab. Thank you for referring your patient for ultrasound assessment. I discussed the findings on today'sultrasound with the patient. She has a persistent placenta previa with recent hospitalization for vaginal bleeding. The deliveryrange for previa is [id number] but given her bleeding I recommend scheduling her section in the earlier range. She did get a betamethasone course last week during her hospitalization, so she likely will not need rescue betamethasone given her anticipated in the 36th weeks. She would like to at [facility]. She also requests one last US around 35 weeks, with MFM, to confirm [...] the patient (reviewing medical records/tests), in direct ywzn-pv-brpj contact with the patient counseling and discussing the plan of care, documenting the visit in the electronic medical record, and communicating with other health geriatric care manager and/or care coordination. Lorenzo Choi MD Maternal Medicine documented in this encounter Nursing Notes * Simran Avila RN - 12/20/2024 10:30 AM CDT Patient here for Growth Ultrasound to reassess Complete Previa. Patient reports movement, denies pain, contractions, leaking of fluid. Having brown spotting/discharge after first bleed one week ago. Admitted at [place] for Moderate Bleed at [facility]. Patient denies headache, visual changes, nausea/vomiting, epigastric pain related to preeclampsia. SBAR given to SUSANA HEMPHILL, see their note in Epic. documented in this encounter Plan of Treatment Not on file documented as of this encounter Results * [facility] Comprehensive Single F/U (01/10/2025 9:46 AM CDT) Anatomical Region Laterality Modality Ultrasound 01/10/2025 9:02 AM CDT Impressions 01/10/2025 10:38 AM CDT IMPRESSION ----- 1. Jeffries at 35w 3d gestational age. 2. None of the anomalies commonly detected by ultrasound were evident in the limited anatomic survey as described above. 3. Growth parameters and estimated weight were appropriate for gestational age. 4. The amniotic fluid volume appeared normal. 5. Placenta previa again noted. Some placental lakes are visualized. However, there appears to be a clear border between myometrium and placenta and no evidence of hypervascularity, making placenta accreta spectrum unlikely. Narrative 01/10/2025 10:38 AM CDT Comp Follow Up ----- Pat. Name: ISABEL MORALES Study Date: 01/10/2025 9:02am Pat. NO: [id number] Referring MD: UMER BETH Site: Hair Tinter: Mara Lincoln RDVT : 1990 Age: 34 ----- INDICATION ----- Placenta previa with recent admission for vaginal bleeding METHOD ----- Transabdominal and transvaginal ultrasound approaches were used. (Transvaginal ultrasound examination was required to adequately complete the exam.). View: Sufficient ----- Jeffries . Number of fetuses: 1 DATING ----- Date Details Gest. age JOHANN LMP 05/13/2024 Cycle: <3 cycles after discontinuation of IUD 34 w + 4 d 02/17/2025 Previous U/S 07/15/2024 GA, GA 9 w + 6 d 35 w + 3 d 02/11/2025 U/S 01/10/2025 based upon AC, BPD, Femur, HC 36 w + 5 d 02/02/2025 Assigned dating based on ultrasound (GA), selected on 01/10/2025 35 w + 3 d 02/11/2025 GENERAL EVALUATION ----- Cardiac activity present. FHR 136 bpm. movements: present. Presentation: cephalic Placenta: Anterior/left lateral, complete previa. Umbilical cord: 3 vessel cord Amniotic fluid: Amount of AF: normal. MVP 6.4 cm PLACENTA ACCRETA SPECTRUM ASSESSMENT History of Delivery: No History of Prior Uterine Surgery or Curretage: No Placenta location: anterior complete previa Placenta Previa: complete Second and Third Trimester Markers Placental lucane: none seen Abnormal uteroplacenta interface: not seen Abnormal uterine contour placental bulge): not seen Exophytic mass: not seen Bridging vessels: not seen BIOMETRY ----- BPD 86.8 mm 35w 0d Hadlock OFD 113.0 mm 35w 0d Nicolaides HC 317.3 mm 35w 5d Hadlock Cerebellum tr 46.9 mm -/- Nicolaides AC 350.0 mm 38w 6d >99% Hadlock Femur 73.0 mm 37w 3d Hadlock Humerus 63.5 mm 36w 6d Yenny Weight Calculation: EFW 3,281 g 95% Hadlock EFW (lb,oz) 7 lb 4 oz EFW by Hadlock ([id number]) Head / Face / Neck Biometry: Relay Technician 6.0 mm CM 9.5 mm ANATOMY ----- The following structures appear normal: Head / Neck Cranium. Head size. Head shape. Lateral ventricles. Midline falx. Cavum septi pellucidi. Cerebellum. Cisterna magna. Thalami. Heart / Thorax 4-chamber view. RVOT view. LVOT view. 8-fuivvw-mcmpuet view. Diaphragm. Abdomen Stomach. Kidneys. Bladder. Spine Cervical spine. Thoracic spine. Lumbar spine. Sacral spine. The following structures were documented previously: Face Lips. Profile. Nose. sex: male. MATERNAL STRUCTURES ----- Cervix Visualized Appearance: Appears Closed Approach - Transvaginal: Cervical length 51.3 mm Right Ovary Not examined Left Ovary Not examined RECOMMENDATION ----- I discussed the findings on today's ultrasound with the patient. #Placenta Previa We reviewed the persistence of the placenta over the cervix (~ 1.5 cm of placenta covers os). We discussed that based on this persistent previa, we would recommend as scheduled in the 36th week. She has already received betamethasone, so a rescue dose is not indicated at this gestational age. We discussed that earlier may be indicated if bleeding or contractions were to develop prior to scheduled . She had several questions related to likelihood of accreta. We discussed that given the lack of uterine surgical history and overall US findings, placenta accreta spectrum is not likely. However, we did discuss the difficulties of diagnosing focal accreta and that there is occasionally a disconnect between US and surgical findings. At this time, she is scheduled to have a C section in [place], and we discussed that given the absence of suspicion for placenta accreta at this time, that is a reasonable plan. We did review that if there were concern for abnormal uterine vascularity concerning for accreta at the time of a C section, it may be possible to close the abdomen and transfer to a higher level of care prior to hysterotomy, if reassuring maternal- status. However, we discussed that this was unlikely. No further follow up is scheduled in our clinic, though we remain available if needed. Return to primary provider for continued care. If you have questions regarding today's evaluation or if we can be of further service, please contact the [facility] Center. anomalies may be present but not detected I spent a total of 25 minutes (excluding the ultrasound interpretation) on the date of this encounter including preparing to see the patient (reviewing medical records/tests), in direct urky-qs-qzfa contact with the patient during the visit counseling and discussing the plan of care and documenting the visit in the electronic medical record. Procedure Note Renetta Chen MD - 01/10/2025 Comp Follow Up ----- Pat. Name: ISABEL MORALES Study Date: 01/10/2025 9:02am Pat. NO: [id number] Referring MD: UMER BETH Site: Hair Tinter: Mara Lincoln RDMS : 1990 Age: 34 ----- INDICATION ----- Placenta previa with recent admission for vaginal bleeding METHOD ----- Transabdominal and transvaginal ultrasound approaches were used.(Transvaginal ultrasound examination was required to adequately completethe exam.). View: Sufficient ----- Jeffries . Number of fetuses: 1 DATING ----- DateDetailsGest. age JOHANN LMP 5Cycle: <3 cycles after discontinuation of IUD34 w + 4 d 02/17/2025 Previous U/S 07/15/2024 GA, GA9 w + 6 d35 w + 3 d 02/11/2025 U/S 5based upon AC, BPD, Femur, HC36 w + 5 d 02/02/2025 Assigned dating based on ultrasound (GA), selected on01/10/2025 35w + 3 d 02/11/2025 GENERAL EVALUATION ----- Cardiac activity present. FHR 136 bpm. movements: present.Presentation: cephalic Placenta: Anterior/left lateral, complete previa. Umbilical cord: 3 vessel cord Amniotic fluid: Amount of AF: normal. MVP 6.4 cm PLACENTA ACCRETA SPECTRUM ASSESSMENT History of Delivery: No History of Prior Uterine Surgery or Curretage: No Placenta location: anterior complete previa Placenta Previa: complete Second and Third Trimester Markers Placental lucane: none seen Abnormal uteroplacenta interface: not seen Abnormal uterine contour placental bulge): not seen Exophytic mass: not seen Bridging vessels: not seen BIOMETRY ----- BPD 86.8mm 35w 0dHadlock OFD 113.0mm 35w 0dNicolaides HC 317.3mm 35w 5dHadlock Cerebellum tr 46.9mm -/-Nicolaides AC 350.0mm 38w 6d >99%Hadlock Femur 73.0mm 37w 3dHadlock Humerus 63.5mm 36w 6dJeanty Weight Calculation: EFW 3,281g 95%Hadlock EFW (lb,oz) 7 lb 4oz EFW by Zuri([id number]) Head / Face / Neck Biometry: Relay Technician 6.0mm CM 9.5mm ANATOMY ----- The following structures appear normal: Head / Neck Cranium. Head size. Head shape.Lateral ventricles. Midline falx. Cavum septi pellucidi. Cerebellum.Cisterna magna. Thalami. Heart / Thorax 4-chamber view. RVOT view. LVOT view.1-qsinbt-maqqgkt view. Diaphragm. Abdomen Stomach. Kidneys. Bladder. Spine Cervical spine. Thoracic spine.Lumbar spine. Sacral spine. The following structures were documented previously: Face Lips. Profile. Nose. sex: male. MATERNAL STRUCTURES ----- Cervix Visualized Appearance: Appears Closed Approach - Transvaginal:Cervical length 51.3 mm Right Ovary Not examined Left Ovary Not examined RECOMMENDATION ----- I discussed the findings on today's ultrasound with the patient. #Placenta Previa We reviewed the persistence of the placenta over the cervix (~ 1.5 cm ofplacenta covers os). We discussed that based on this persistent previa, wewould recommend as scheduled in the 36th week. She has already receivedbetamethasone, so a rescue dose is not indicated at this gestational age.We discussed that earlier may be indicated if bleeding or contractions were to developprior to scheduled . She had several questions related to likelihood of accreta. We discussedthat given the lack of uterine surgical history and overall US findings,placenta accreta spectrum is not likely. However, we did discuss the difficulties of diagnosing focalaccreta and that there is occasionally a disconnect between US andsurgical findings. At this time, she is scheduled to have a C section in [place], and we discussed thatgiven the absence of suspicion for placenta accreta at this time, that mayito reasonable plan. We did review that if there were concern for abnormal uterine vascularityconcerning for accreta at the time of a C section, it may be possible toclose the abdomen and transfer to a higher level of care prior to hysterotomy, if reassuringmaternal- status. However, we discussed that this was unlikely. No further follow up is scheduled in our clinic, though we remainavailable if needed. Return to primary provider for continued care. If you have questions regarding today's evaluation or if we can be offurther service, please contact the Maternal- Medicine Center. anomalies may be present but not detected I spent a total of 25 minutes (excluding the ultrasound interpretation) onthe date of this encounter including preparing to see the patient(reviewing medical records/tests), in direct rjqv-km-hjdd contact with the patient during the visitcounseling and discussing the plan of care and documenting the visit inthe electronic medical record. IMPRESSION ----- 1. Jeffries at 35w 3d gestational age. 2. None of the anomalies commonly detected by ultrasound were evident inthe limited anatomic survey as described above. 3. Growth parameters and estimated weight were appropriate forgestational age. 4. The amniotic fluid volume appeared normal. 5. Placenta previa again noted. Some placental lakes are visualized.However, there appears to be a clear border between myometrium andplacenta and no evidence of hypervascularity, making placenta accreta spectrum unlikely. us Lorenzo Choi MD [facility] US ORDERABLES Edit ed Result - Final documented in this encounter Visit Diagnoses Diagnosis Placenta previa in third trimester- Primary Placenta previa in second trimester Placenta previa in third trimester documented in this encounter Care Teams Tube Roller Relationship Specialty Start Date End Date No Ref-Primary, Physician PCP - General 09/12/24 Tabby Park MD [address] [place] [address] Assigned OBGYN Provider 12/13/24 documented as of this encounter
--- OUTSIDE RECORDS SUMMARY | 2025-01-10 07:59 | XMS_ITS | Encounter Summary ---
Author Organization [place] Address [address] [place] [address] Care Team Providers Care Residential Carpet Installer Name Role Phone No Ref-Primary, Physician Primary Care Provider Tabby Park MD Unavailable [phone] Reason for Referral * Diagnostic Imaging Ultrasound (Routine) - Pending Review Specialty Diagnoses / Procedures Referred By Contac t Referred To Contact Radiology. Diagnoses Placenta previa in third trimester Procedures [facility] US Comprehensive Single F/U Lorenzo Choi MD [address] [place] [address] Phone: tel: fax: Referral ID Status Reason Start Date Expiration Date V isits Requested Visits Authorized [id number] Pending Review 12/20/2024 12/20/2025 1 1 Reason for Visit * Diagnostic Imaging Ultrasound (Routine) - Pending Review Specialty Diagnoses / Procedures Referred By Contac t Referred To Contact Radiology. Diagnoses Placenta previa in third trimester Procedures [facility] US Comprehensive Single F/U Lorenzo Choi MD [address] [place] [address] Phone: tel: fax: Referral ID Status Reason Start Date Expiration Date V isits Requested Visits Authorized [id number] Pending Review 12/20/2024 12/20/2025 1 1 Encounter Details Date Type Department Care Team (Latest Contact Info) Description 01/10/2025 8:59 AM CDT - 01/10/2025 11:59 PM CDT Hospital Encounter [facility] [place] [address] [place] [address] Lorenzo Choi MD [address] [place] [address] Renetta Chen MD [address] [place] [address] Placenta previa in third trimester Discharge Disposition: Home or Self Care [...] Procedure Name Priority Date/Time Associated Diagnosis Comments [facility] COMPREHENSIVE SINGLE F/U Routine 01/10/2025 9:46 AM CDT Placenta previa in third trimester documented in this encounter Results * [facility] US Comprehensive Single F/U (01/10/2025 9:46 AM CDT) [...] MORALES Study Date: 01/10/2025 9:02am Pat. NO: [id number] Referring MD: UMER BETH Site: Adjunct Communications Faculty Member: Mara Lincoln RDMS : 1990 Age: 34 [...] 7 lb 4 oz EFW by Hadlock ([id number]) Head / Face / Neck Biometry: Drug Inspector 6.0 mm CM 9.5 mm ANATOMY ----- The following structures appear normal: Head / Neck Cranium. Head size. Head shape. Lateral ventricles. Midline falx. Cavum septi pellucidi. Cerebellum. Cisterna magna. Thalami. Heart / Thorax 4-chamber view. RVOT view. LVOT view. 8-dmgqts-cbfggmx view. Diaphragm. Abdomen Stomach. Kidneys. Bladder. Spine [...] scheduled to have a C section in [place], and we discussed that given the absence [...] the patient (reviewing medical records/tests), in direct vybx-la-abpa contact with the patient during the visit counseling and discussing the plan of care and documenting the visit in the electronic medical record. Procedure Note Renetta Chen MD - 01/10/2025 Comp Follow Up ----- Jessi. Name: ISABEL MORALES Study Date: 01/10/2025 9:02am Pat. NO: [id number] Referring MD: UMER BETH Site: Adjunct Communications Faculty Member: Mara Lincoln RDMS : 1990 Age: 34 ----- INDICATION ----- Placenta previa with recent admission for vaginal bleeding METHOD ----- Transabdominal and transvaginal ultrasound approaches were used.(Transvaginal ultrasound examination was required to adequately completethe exam.). View: Sufficient ----- Jeffries . Number of fetuses: 1 DATING ----- DateDetailsGest. age JOHANN LMP 05/13/2024ycle: <3 cycles after discontinuation of IUD34 w + 4 d 02/17/2025 Previous U/S 07/15/2024 GA, GA9 w + 6 d35 w + 3 d 02/11/2025 U/S 01/10/2025ased upon AC, BPD, Femur, HC36 w + [...] EFW (lb,oz) 7 lb 4oz EFW by Hadlock([id number]) Head / Face / Neck Biometry: Drug Inspector 6.0mm CM 9.5mm ANATOMY ----- The following structures appear normal: Head / Neck Cranium. Head size. Head shape.Lateral ventricles. Midline falx. Cavum septi pellucidi. Cerebellum.Cisterna magna. Thalami. Heart / Thorax 4-chamber view. RVOT view. LVOT view.7-iqbinu-kxfmvso view. Diaphragm. Abdomen Stomach. Kidneys. Bladder. Spine [...] scheduled to have a C section in [place], and we discussed thatgiven the absence of [...] see the patient(reviewing medical records/tests), in direct nwdc-wt-ftft contact with the patient during the visitcounseling [...] accreta spectrum unlikely. us Lorenzo Choi MD [facility] US ORDERABLES Edit ed Result - Final documented in this encounter Visit Diagnoses Diagnosis Placenta previa in third trimester documented in this encounter Care Teams Residential Carpet Installer Relationship Specialty Start Date End Date No Ref-Primary, Physician PCP - General 09/12/24 Tabby Park MD [address] [address] Assigned OBGYN Provider 12/13/24 documented as of this encounter
--- OUTSIDE RECORDS SUMMARY | 2025-01-10 08:30 | XMS_ITS | Encounter Summary ---
Author Organization [place] Address [facility] [place] [address] Care Team Providers Care Administrative Underwriter Name Role Phone No Ref-Primary, Physician Primary Care Provider Tabby Park MD Unavailable [phone] Reason for Visit * Reason Comments Ultrasound RL2/TV-complete prev ia Encounter Details Date Type Department Care Team ([facility] st Contact Info) Description 01/10/2025 9:30 AM CDT Office Visit [facility] [place] [address] [facility] [address] [place] [address] Lorenzo Choi MD [address] [place] [address] Renetta Chen MD [address] [place] [address] Placenta previa in third trimester (Primary Dx) Social History Tobacco Use Types Packs/Day Years Used Date Smoking Tobacco: Never Assessed Estimated Date of Delivery Comme nts Yes 02/11/2025 Based on Ultraso und Sex and Gender Information Value Date Recorded Sex Assigned at Not on file Legal Sex Female 1:23 PM CDT Gender Identity Not on file Sexual Orientation Not on file documented as of this encounter Progress Notes * Renetta Chen MD - 01/10/2025 9:30 AM CDT Please see Imaging tab under Chart Review for details of today's visit. Renetta Chen MD PhD Maternal Medicine documented in this encounter Nursing Notes * Malissa Gomez, RN - 01/10/2025 9:30 AM CDT Patient presents to [facility] for RL2/TV at 35w3d due to complete previa. Positive movement. DeniesLOF, vaginal bleeding. Pt reports about 6 contractions per day. Her OB provider is aware. She has not had any further vaginal bleeding since 12/12/24. SBAR given to [facility] , see their note in Epic. documented in this encounter Plan of Treatment Not on file documented as of this encounter Visit Diagnoses Diagnosis Placenta previa in third trimester- Primary documented in this encounter Care Teams Administrative Underwriter Relationship Specialty Start Date End Date No Ref-Primary, Physician PCP - General 09/12/24 Tabby Park MD [address] [address] Assigned OBGYN Provider 12/13/24 documented as of this encounter
[2025-01-22] VITALS (21 sets, daily range): BP systolic 119–144; BP diastolic 66–86; PULSE 54–65; RESP 16–18; TEMP 36.7; O2SAT 97–100
--- OUTSIDE RECORDS SUMMARY | 2025-01-22 09:32 | XMS_ITS | Encounter Summary ---
Author Organization [place] Address [facility] [place] [address] Care Team Providers Care Finishing Area Operator Name Role Phone No Ref-Primary, Physician Primary Care Provider Tabby Park MD Unavailable [phone] Encounter Details Date Type Department Care Team (Latest Contact Info) Description 12/20/2024 Travel Social History Tobacco Use Types Packs/Day Years [...] documented as of this encounter Visit Diagnoses Not on filedocumented in this encounter Care Teams Finishing Area Operator Relationship Specialty Start Date End Date No Ref-Primary, Physician PCP - General 09/12/24 Tabby Park MD [address] [facility] [address] [place] [address] Assigned OBGYN Provider 12/13/24 documented as of this encounter
--- OUTSIDE RECORDS SUMMARY | 2025-01-22 09:32 | XMS_ITS | Clinical Summary ---
Author Organization [facility] Address [address] [place] [id number] Care Team Providers Care Formal Service Waiter Name Role Phone [facility] Primary Care Provider [phone] Allergies Active Allergy Reactions Criticality Noted Date Comments Penicillins Rash,Arthralgia High 12/12/2024 As a child of 5years old Sulfa (Sulfonamide Antibiotics) Rash Medium 12/12/2024 Medications 25/iron fum/folic/dha (-1 ORAL) Take 1 Capsule by mouth once daily. Active cholecalciferol (Vitamin D-3) 2,000 unit capsule Take 2,000 units by mouth once daily. Gummy Active inulin (FIBER GUMMIES ORAL) Take 2 Capsules by mouth once daily. Active aspirin 81 mg tablet Take 81 mg by mouth once daily. Active ferrous sulfate (Iron) 325 mg (65 mg iron) tabletIndicatio ns:iron deficiency anemia Take 325 mg by mouth once every other day. Active Active Problems Problem Noted Date Diagnosed Date Advanced maternal age in multigravida 12/13/2024 Vaginal bleeding during 12/13/2024 [facility] Supervision of high-risk Overview (12/13/2024): Isabel Brian Morales : 1990 REFERRING PROVIDER/CLINIC LOCATION/FAX #: Caitlin Ornelas NP/Dr Briscoe Primary provider approves scheduling of recommended ultrasounds/testing: Yes Primary OB: FARRAH Segura ULTRASOUND/TESTING PATIENT Support person name: ULTRASOUND TYPE: 12/14/24 In patient Complete/BPP REASON FOR VISIT: placenta previa NEXT VISIT ALERTS: Final JOHANN by Early US LMP Date: Patient's last menstrual period was 05/13/2024 (exact date). JOHANN: 02/17/25 Early US: Date: 07/15/24 GA: 9w6d JOHANN: 02/11/25 PrePregnancy Weight: Height: 5ft2in BMI: PLANS & FUTURE APPOINTMENTS: - Growth: Every 4 weeks Next TESTING PLAN: - Testing: Through DELIVERY PLAN: - Scheduled delivery: - Preferred delivery location: PRIMARY DIAGNOSIS: 34 y.o. Estimated Date of Delivery: 02/11/25 Placenta previa - hospital admission 12/12/24 d/t first bleed 2020 39w0d Vaginal delivery 2017 39w0d Vaginal delivery PREVIOUS ULTRASOUNDS: 12/14/24 31w4d 11/18/24 27w6d EFW 1473 grams, percentile: 96 (PCP) 10/03/24 21w2d EFW 571 grams, percentile: 99 (PCP) ECHO: SPECIALISTS/CONSULTS: Include: Specialty MD Clinic Name Phone# [place] and ADDED TO PATIENT CARE TEAM GENETICS: unknown CARE COORDINATION: PERTINENT LABS: Labs reviewed? Yes - per admitting provider note Blood type: A Rh Positive Antibody screen: Negative PERTINENT MEDS: Betamethasone 12/12 & 12/13 PROCEDURES: PLAN OF CARE: 12/13/24 per SF Monitoring: - Placenta Previa -first bleed. - Inpatient hospitalization until 72 hours at least of no bleeding - Keep saline lock IV in place - monitoring twice daily with daily NST - BPP to be scheduled erica, msg sent. - Detailed anatomy ultrasound to be scheduled erica, msg sent - Growth US at 4 week intervals. If placenta does not cover internal os, document distance to internal os. Labs: - Hemoglobin on admission and after significant bleeds - Ferritin pending, if low will discuss Venofer with patient - Type & screen on admission - Rh status: positive Medications: - Betamethasone course 2 doses for benefit 12/12- - Give booster course if has been greater than 2 weeks since initial course - Magnesium Sulfate 4 g IV for neuroprotection- 12/12 - Due to the risk of increased vaginal bleeding, will hold off on initiating heparin at this time. Depending on patient mobility, bleeding stability and length of hospital stay, could consider heparin for VE prophylaxis in the future. Consults: - NICU consult 12/13 - Integrative medicine Delivery: - Deliver for maternal hemorrhage, distress or at 36-37 weeks. - Mode: section planned due to placenta previa unless it moves Discussion: -The risks and benefits of prolongation in the setting of bleeding from placenta previa were reviewed with the patient. The management plan documented above was also reviewed and patient agrees. Placenta previa in third trimester 12/12/2024 Estimated Date of Delivery Comme nts Yes 02/11/2025 Based on Other B asis Resolved Problems Problem Noted Date Diagnosed Date Resolved Date Placenta previa in third trimester 12/12/2024 12/12/2024 Encounters Date Type Department Care Team Description 01/16/2025 Lab Requisition [facility] [phone] Bev Parada MD 12/14/2024 Travel 12/12/2024 10:03 PM CDT - 12/15/2024 6:15 PM CDT Hospital Encounter [facility] [address] [place] [address] Nba Estrella MD Severson, Shawn Marie, MD Discharge Disposition: Home Self Care 12/12/2024 Travel from Last 3 Months Immunizations Immunization Administration Dates Next Due INFLUENZA, IIV3 PF (AGE >= 6 MO) 12/14/2024 Tdap 12/06/2024,08/10/2020,08/25/2006 Social History Tobacco Use Types Packs/Day Years Used Date Smoking Tobacco: Never Smokeless Tobacco: Never Tobacco Cessation:Counseling Given: Not Answered Alcohol Use Standard Drinks/Week Comments Not Currently 0 (1 standard drink = 0.6 oz pur e alcohol) Social Connections Answer Date Recorded Do you often feel lonely or isolated from those around you? 0 12/12/2024 Financial Resource Strain Answer Date R ecorded Difficulty of Paying Living Expenses 3 12/12/2024 Difficulty of Paying Living Expenses Not on file 12/12/2024 Food Insecurity Answer Date Recorded Do you worry your food will run out before you are able to buy more? 1 12/12/2024 Transportation Needs Answer Date Record ed Does lack of transportation keep you from medica l appointments? 1 12/12/2024 Does lack of transportation keep you from work, meetings or getting things that you need? 1 12/12/2024 Housing Stability Answer Date Recorded What is your housing situation today? 1 12/12/2024 Interpersonal Safety Answer Date Record ed Are you being hit, kicked, p ushed or yelled at (see row info)? No 12/12/2024 Interpersonal Safety Abuse 12 - 18 Not on file 12/12/2024 Interpersonal Safety Ambulatory Vulnerability No t on file 12/12/2024 Utilities Answer Date Recorded Do you have trouble paying f or utilities (for example, heat, electricity, water, phone)? 1 12/12/2024 Estimated Date of Delivery Comme nts Yes 02/11/2025 Based on Other B asis Sex and Gender Information Value Date Recorded Sex Assigned at Not on file Legal Sex Female 4:20 PM CDT Gender Identity Not on file Sexual Orientation Not on file Obstetrics History Para Term AB IAB SAB Ectopic Multiple Livin g Live Births 3 2 2 2 2 Date Outcome GA Total Labor Labor/2nd/3rd Weight Sex Type Anes PTL Chen A1 A5 Name Clin 2017 Term 39w 1d 3.39 kg (7 lb 7.5 oz) M Vag-S pont N Living Complications:None 2020 Term 39w 3d 3.54 kg (7 lb 13 oz) F Vag-S pont N Living 8 9 Complications:None Comments:PRECIPITOUS L ABOR Current Summary Episode Dates Number of Fetuses Estimated Date of Delivery 12/12/2024 - Present (01/22/2025) 02/11/2025 (set by Tyesha Pisano, ALTON on 12/13/2024 based on Other Basis) Dating Summary Based On JOHANN GA Diff Other Basis 02/11/2025 Working Last Menstrual Period on 05/13/2024 (Exact Date) 02/17/2025 -6d Overview and Plan sex:Male Support person:Ming Vitals Date GA Fund Present FHR Mvmt BP Weight Edema Alb Glu Ket Dil/ Eff/Sta 5 31w5d Inpatient data not displayed here. See encounter summary. Notes Progress Notes - Hospital En counter - 12/15/2024 - GA:31w5d 12/15/2024 - 31w5d - Ivone Haney RN Inpatient Antepartum Discharge Note Data: Date of Admission: 12/12/2024 Reason for admission: Vaginal Bleeding Isabel Morales is a at 31w5d. Betamethasone given on 12/12 and 12/13. VSS. movement present, patient is aware of the need to remain aware of movement and call provider to report decreased movement. Patient denies cramping, backache, vaginal discharge, pelvic pressure, UTI symptoms, GI problems, bloody show, vaginal bleeding, edema, headache, visual disturbances, epigastric or URQ pain, abdominal pain, rupture of membranes at this time. Action: Patient education pamphlets given on movement counts, labor. Patient instructed to call provider for change in/decreased movement, headache, visual changes, chest pain or shortness of breath, epigastric pain, nausea and vomiting, contractions, vaginal leaking of fluid or bleeding, abdominal pain, or any concerns related to the to her nurse/provider. Response/Plan: Discharge plan per provider is discharge to home. Patient verbalized understanding of education and verbalizes agreement with plan. Discharged Wheelchair at 1815. Ivone Haney RN 12/15/2024 - 31w5d - Jory Quinonez RN ANTEPARTUM INPATIENT EFM Patient: Isabel Morales : 1990 Date of test: 12/14/2024 Strip Time Segment: 1940 to 2006 ANN-MARIE/Acct: [id number] Admitting Physician: Shen Peraza MD Gestational Age: 31w4d JOHANN of 02/11/2025, by Other Basis Reason for monitoring: BID, Placenta Previa 1st bleed Is Patient Having Contractions?: Yes Contractions / Frequency: irregular Contractions Duration (range in sec): 40-60 Contractions Strength By Palpation: Mild Palpated Resting Tone: Soft Patient Perception of Contractions: not feeling as much cramping now Movement: Present Baseline FHR: 130 Baseline Variability: Moderate Accelerations: Present Age Appropriate Accelerations: 15 X 15;2 in 20 Decelerations / Type: None Acoustic Stimulator: No Nonstress Test Interpretation: (AGA) Result: Expected result Provider notification: N/A per policy , cosigned by 2nd RN. 12/14/2024 - 31w4d - Nichol Chaudhry MD OB HOSPITALIST PROGRESS NOTE 34 y.o. with IUP at 31w4d gestation admitted for placenta previa, first bleed Subjective: Feels moderately. The patient has noticed some more contractions/tightening today compared to yesterday, but they are not painful. She had a lot more when she initially presented in [place] prior to transfer here. She is just unsure when she should be concerned. Brown with wiping. No bright red bleeding. Voiding without difficulty. Has a normal appetite, denies nausea/vomiting, denies heartburn, is tolerating a regular diet, and denies constipation. movements are present. No leaking fluid. Objective: Patient Vitals for the past 24 hrs: BP Temp Pulse Resp SpO2 12/14/24 0815 124/70 98.7 F (37.1 C) 83 16 -- 12/14/24 0344 109/67 -- 69 18 99 % 12/13/24 2050 122/73 98.9 F (37.2 C) 83 16 99 % 12/13/24 1813 109/62 99 F (37.2 C) 87 14 98 % 12/13/24 1635 115/68 -- 95 -- -- 12/13/24 1550 128/73 99 F (37.2 C) 86 -- -- No data found. General Appearance: normal affect, healthy, alert, no distress Mood: appropriate Cardiovascular: regular rate Respiratory: unlabored breathing Abdomen: Soft, Non-tender, Gravid Musculoskeletal: Normal Monitoring Strip Evaluation: Baseline Rate: 135 beats per minute Variability: Moderate Accelerations: Greater than 2 Decelerations: None NST: Reactive Non-Stress Test Contractions: yes Labs: GBS: Not Tested/Assessed Recent Labs 12/13/24 0010 HGB 10.8 L Medications: -Betamethasone - completed 12/12-12/13 -IV magnesium sulfate - completed -ASA 81mg daily -venofer 12/13 and 12/15 - vitamin Having anatomy ultrasound today. Assessment: 34 y.o. with IUP at 31w4d gestation Active Problems: Placenta previa in third trimester (HC) Advanced maternal age in multigravida (HC) Vaginal bleeding during (HC) Status and plan of care reviewed with [facility] physician during morning rounds. Overall Status: stable Plan: Continue inpatient antepartum admission for at least 72 hours of no bleeding. Monitoring: - Placenta Previa -first bleed. - Inpatient hospitalization until 72 hours at least of no bleeding - Keep saline lock IV in place - monitoring twice daily with daily NST - Detailed anatomy ultrasound and BPP today - Growth US at 4 week intervals. If placenta does not cover internal os, document distance to internal os. Labs: - Hemoglobin on admission and after significant bleeds - Ferritin low (14.6). Venofer 12/13 and 12/15 - Type & screen on admission - Rh status: positive Medications: - Betamethasone course 2 doses for benefit 12/12- - Give booster course if has been greater than 2 weeks since initial course - Magnesium Sulfate 4 g IV for neuroprotection- 12/12 - Due to the risk of increased vaginal bleeding, will hold off on initiating heparin at this time. Depending on patient mobility, bleeding stability and length of hospital stay, could consider heparin for VTE prophylaxis in the future. Consults: - NICU consult 12/13 - Integrative medicine Delivery: - Deliver for maternal hemorrhage, distress or at 36-37 weeks. - Mode: section planned due to placenta previa unless placenta moves Nichol Adkins MD .................... 12/14/2024 12:05 PM 12/14/2024 - 31w4d - Annie Silva RN ANTEPARTUM INPATIENT EFM Patient: Isabel Morales : 1990 Date of test: 12/13/2024 Strip Time Segment: 2011 ANN-MARIE/Acct: [id number] Admitting Physician: Shen Peraza MD Gestational Age: 31w3d JOHANN of 02/11/2025, by Other Basis Reason for monitoring: Complete placenta previa, 1st bleed, BID monitoring Is Patient Having Contractions?: Yes Contractions / Frequency: x1 w/ irrit Contractions Duration (range in sec): 40 Contractions Strength By Palpation: None Palpated Resting Tone: Soft Patient Perception of Contractions: some tightening Movement: Present Baseline FHR: 135 Baseline Variability: Moderate Accelerations: Present Age Appropriate Accelerations: 15 X 15;2 in 20 Decelerations / Type: None Acoustic Stimulator: No Nonstress Test Interpretation: (not recorded) Result: Expected result Provider notification: N/A per policy Reviewed and signed by 2nd RN. 12/13/2024 - w3d - Leah Florentino RN Patient reports first time receiving IV Iron medication. IV in L forearm attempted to be flushed, IV site leaking. New PIV obtained in R Hand 20g by sports book writer. Patient educated on when to call with concerns for transfusion related symptoms. Patient verbalized understanding. Vitals obtained before infusion and 15 minutes into infusion. Infusion ran at test dose rate (100 ml over 30 minutes). Rate increased afterwards. Patient verbalized understanding of when to call. New PIV site appears WNL 12/13/2024 - w3d - Mica Ornelas NP MPP Interval Update: ITSP, denies any further bleeding. Feeling well. Reviewed low ferritin. Plan for IV iron (Venofer) 300mg today and . Caitlin Ornelas CNP, NP-[facility] 12/13/2024 - w3d - Carolyn Diego RN Patient denies loss of fluid, headache, visual changes/disturbances, unusual edema, and RUQ pain. Reports normal movement. Abdomen palpates soft, non-tender. Reports rare abdominal tightening and scant brown discharge when wiping. Patient instructed to report change in movement, contractions, vaginal leaking of fluid or increased bleeding, abdominal pain, or any concerns related to the to her nurse/physician, pt states verbal understanding. Vital signs stable. Pt resting comfortable at time of assessment. 12/13/2024 - 31wankur - Rhea Guillen RN Problem: MATERNAL STABILITY Goal: PROLONGATION OF HEALTHY THROUGHOUT HOSPITALIZATION UNLESS MATERNAL COMPLICATIONS REQUIRE DELIVERY OF BABY Note: 0500 Pt called out with c/o q55-10wba tightening, some low cramping - not painful. Same scant brown discharge as earlier. EFM offered, pt declined at this time - RN encouraged pt to call if intensity of tightening or cramping increases or gets more frequent. Pt agrees. VSS. 12/13/2024 - wankur - Milind Pisano RN HEART RATE TRACING INTERPRETATION Patient: Isabel Morales : 1990 Date of test: 12/13/2024 Strip Time Segment: 2212 to 2311 ANN-MARIE/Acct: [id number] Admitting Physician: Shen Peraza MD Gestational Age: 30w4d JOHANN of 02/17/2025, by Other Basis Reason for Non-Stress test: Complete placenta previa. Is Patient Having Contractions?: Yes Contractions / Frequency: x5 Contractions Duration (range in sec): 60-160 Contractions Strength By Palpation: Mild Palpated Resting Tone: Soft Patient Perception of Contractions: denies Movement: Present Baseline FHR: 145/135 Baseline Variability: Moderate Accelerations: Present Age Appropriate Accelerations: 15 X 15;2 in 20 Decelerations / Type: None Acoustic Stimulator: (not recorded) Nonstress Test Interpretation: (not recorded) Result: Expected result Provider notification: N/A per policy .2nd RN co-signed. Tyesha Pisano RN .................... 12/13/2024 12:13 AM 12/13/2024 - 31w3d - Milind Pisano RN Admission Note Data: Patient admitted to room 3616 per stretcher from [facility]/direct admit for Vaginal bleeding. Patient is at 31+2 weeks gestation. History includes: complete placenta previa, AMA, Precipitous labor, anemia. Action: Nobody was present with patient on admission. She had a gown on. Settled into bed. Orientated to room/floor. Call light within reach. EFM/[place] explained and applied. Baby active to palpation and mother perceives movement. VS and assessment obtained (see flowsheet). Admission navigator completed. Plan of care reviewed and questions answered. Dr Stu MD notified of admission. Response: Patient tolerated transfer. and Patient is stable. She had 1st dose beta from previous facility. Mag load 4g given at 2306. Reactive NST. Patient verbalized understanding and denied further questions. Plan of care in progress. Tyesha Pisano RN .................... 12/13/2024 12:06 AM Last Filed Vital Signs Vital Sign Reading Time Taken Comments Blood Pressure 115/64 12/15/2024 4:15 PM CDT Pulse 81 12/15/2024 4:15 PM CDT Temperature 36.8 C (98.2 F) 12/15/2024 12:51 PM CDT Respiratory Rate 18 12/15/2024 4:15 PM CDT Oxygen Saturation 100% 12/14/2024 8:00 PM CDT Inhaled Oxygen Concentration - - Weight - - Height - - Body Mass Index - - Plan of Treatment Health Maintenance Due Date Last Done Comments Depression screening for age 12+ 2000 HIV for age 15-65 02/11/2003 BMI (ht and wt on same day) for age 18+ 02/11/2006 Hepatitis C screening for age 18-79 02/11/2006 Hepatitis B series for 19+ (1 of 3 - 19+ 3-dose series) 02/11/2007 HPV series for age 9-45 (1 - 3-dose SCDM series) 02/11/2015 RSV vaccine for adults or (1 - Risk 1-dose series) 12/17/2024 Pap test for age 21-65 11/18/2025 11/18/2022, 2022 Tetanus booster 12/06/2034 12/06/2024, 05/2 03/2020, 08/25/2006 COVID-19 vaccine series Completed 11/01/19, 01/17/2024, 12/13/2022, Additional history exists Influenza Vaccine Completed 12/14/2024 Pneumococcal series for age 6-49 Aged Out No longer eligible based on patient's age to complete this topic Procedures Procedure Name Priority Date/Time Associated Diagnosis Comments PATH TISSUE EXAM PLACENTA Routine 01/16/2025 7:58 AM CDT LAB TRACKING EVENT Routine 01/16/2025 7: 56 AM CDT US OB BASIC ANATOMY SCREEN SINGLE TA PORT Routine 12/14/2024 2:20 PM CDT NONSTRESS TEST Routine 12/14/2024 10:47 AM CDT FERRITIN Today 12/13/2024 11:58 AM CDT TYPE & SCREEN Today 12/13/2024 12:10 AM CDT CBC WITH AUTO DIFFERENTIAL Today 12/13/2024 12:10 AM CDT CBC WITH AUTO DIFFERENTIAL Today 12/13/2024 12:10 AM CDT HPV HIGH RISK Routine 11/18/2022 12:00 PM CDT from Last 3 Months or Most Recently Relevant to Health Maintenance Results * PATH TISSUE EXAM PLACENTA (01/16/2025 7:58 AM CDT) Case Report Pathology Report Case: [id number] Authorizing Provider: Bev Parada MD Collected: 01/16/2025 0758 Ordering Location: [facility] Received: 01/16/2025 1531 Pathologist: Wenceslao Willis MD Specimen: Placenta 01/17/2025 5:13 PM CDT [facility] Final Diagnosis A) PLACENTA, DELIVERY: 1. Third trimester hurt placenta with the following characteristics: a. Weight: 374 grams (36 week 10-90th percentile weight range, 372 - 542 grams) b. Membranes/ surface: Negative for chorioamnionitis c. Umbilical cord: Three vessel cord Negative for funisitis d. Disc/Villi: Chorionic villi consistent with gestational age Negative for villitis Placental disc without infarcts Intervillous thrombus, involving < 5% of the disc e. Decidua/basal plate: Occult placenta accreta, see comment 01/17/2025 5:13 PM CDT [facility] at 1713 CDT Comment - Foci of smooth muscle attached to the maternal surface of the placenta in an area deficient of decidua are identified. This finding is known as occult placenta accreta. While the literature is sparse regarding occult accreta, limited data suggest that this finding may be associated with adherent placenta during delivery, hemorrhage, and/or recurrence risk of clinically recognized placenta accreta in future pregnancies. - Intraplacental hematomas (intervillous thrombi) are usually innocuous when small and few in number, as in this case. When numerous, they may be associated with significant -maternal hemorrhage, leading to anemia and its complications. 01/17/2025 5:13 PM CDT [facility] Clinical Information Indications for Placental Examination by Pathology Placental indications: Previa rule out accreta Clinical information: Date of delivery: 01/16/2025 Time of delivery: 755 Type of delivery: Gestational age: 36.2 weeks weight of infant(s): 2950 grams Sex of (s): Male Pertinent Maternal History: Maternal parity: Diabetes: No Hypertension: No Eclampsia: No Smoking: No 01/17/2025 5:13 PM CDT [facility] Gross Description A) Received fresh labeled with the patient's name and placenta, is a 374 gram, 27.3 x 18.0 x 1.8 cm hurt placenta. The surface is blue-thompson with normal vasculature. The 38.7 cm long, 1.5 cm diameter trivascular umbilical cord is eccentrically inserted 5.6 cm from the nearest edge of the placental plate. The umbilical cord is free of true and false knots. There are 3 revolutions per 10 cm. The extraplacental membranes are pink semitransparent and marginally inserted. The maternal surface is is complete with intact but slightly disrupted cotyledons. No uterine wall fragments are identified grossly. Sectioning reveals a hemorrhagic spongy center throughout with a peripheral 2.1 x 1.6 x 0.6 cm area with discoloration and induration accounting for less than 5% of total volume. Fund Accounting Manager sections are submitted: 1. membranes and insertion 2. Umbilical cord 3. Placenta parenchyma at umbilical cord insertion, full-thickness 4-5. Central placental parenchyma, full-thickness 6. Peripheral placenta parenchyma with white discoloration and induration, full-thickness 7. Additional placenta parenchyma maternal surface, partial thickness Time and date in formalin: 1637 on 01/16/2025 TRS 01/16/2025 01/17/2025 5:13 PM CDT [facility] Microscopic Description The final diagnosis is based on microscopic examination of appropriate sections of all specimens. 01/17/2025 5:13 PM CDT [facility] Additional Information Interpreted at [facility] - [address], [place] [address] 01/17/2025 5:13 PM CDT [facility] Tissue SPECIMEN FROM PLACENTA / Unknown 01/16/2025 7:58 AM CDT 01/16/2025 3:31 PM CDT us Bev Holli Parada MD PATHOLOGY/CYTOLOGY Final Result [facility] [address] [place] [address], * LAB TRACKING EVENT (01/16/2025 7:56 AM CDT) Other (Other) Client Collect / Unknown 01/16/2025 7:56 AM CDT 01/16/2025 1:31 PM CDT us Bev Holli Parada MD LAB BILL ONLY Final Result [facility] [address] [place] [address], [place] * US OB BASIC ANATOMY SCREEN SINGLE TA PORT (12/14/2024 2:20 PM CDT) Anatomical Region Laterality Modality , 2or 3 TRIMESTER Ultrasound 12/14/2024 12:4 2 PM CDT Narrative 12/14/2024 2:26 PM CDT Referred By: KAELA SIMS INDICATION:Placenta previa Indications Code 31 weeks gestation of Z3A.31 Placenta previa - hospital admission 12/12/24 d/t first bleed Betamethasone 12/12 & 12/13 Low Risk NIPT per note L2 with Miguel Angel [facility] 10/03/24 IMPRESSION: Intrauterine at 31w 4d. presentation is Cephalic. EFW 2315 grams, percentile: 96. Growth parameters and estimated weight are appropriate for gestational age. No major structural anomalies identified, anatomic survey limited by advanced gestational age and position. No markers for aneuploidy identified. Deepest Vertical Pocket of amniotic fluid: 6.55 cm. The cervical length is 4 cm. Anterior previa with the leading placental edge just abutting the internal cervical os. RECOMMENDATIONS: -Continue inpatient management of placenta previa s/p first bleed -Repeat US in 3-4 weeks to reassess placenta location. -Planned delivery at 36-37 weeks if previa persists: Deliver at 37 weeks if stable and no bleeding, deliver at 36 weeks if any bleeding. Earlier delivery may be neccesary for heavier bleeding or for indications. CONSULT: Government regulations related to the 21st Century Cures act require that this note be released to the patient immediately, sometimes before the referring provider has been contacted. A portion of the information was presented verbally to the patient. The remainder is submitted as background for the referring provider, to be discussed as needed. Services Provided: Procedures Code COMPLETE > 14WKS - PORTABLE 27691.1 Procedure Note Sharon Briscoe MD - 12/14/2024 Referred By: KAELA SIMS INDICATION:Placenta previa IndicationsCode 31 weeks gestation of [id number] Placenta previa - hospital admission 12/12/24 d/t first bleed Betamethasone 12/12 & 12/13 Low Risk NIPT per note L2 with Brothers [facility] 10/03/24 IMPRESSION: Intrauterine at 31w 4d. presentation is Cephalic. EFW 2315 grams, percentile: 96. Growth parameters and estimated weight are appropriate forgestational age. No major structural anomalies identified, anatomic survey limited byadvanced gestational age and position. No markers for aneuploidy identified. Deepest Vertical Pocket of amniotic fluid: 6.55 cm. The cervical length is 4 cm. Anterior previa with the leading placental edge just abutting the internalcervical os. RECOMMENDATIONS: -Continue inpatient management of placenta previa s/p first bleed -Repeat US in 3-4 weeks to reassess placenta location. -Planned delivery at 36-37 weeks if previa persists: Deliver at37 weeks if stable and no bleeding, deliver at 36 weeks if any bleeding. Earlier delivery may beneccesary for heavier bleeding or for indications. CONSULT: Government regulations related to the Century Cures act require thatthis note be released to the patient immediately, sometimes before the referring provider hasbeen contacted. A portion of the information was presented verbally to the patient. Theremainder is submitted as background for the referring provider, to be discussed as needed. Services Provided: ProceduresCode COMPLETE > 14WKS - [id number] us Caitlin Ornelas ASSISTANCE REPRESENTATIVE US Final Res ult * Non Stress Test (12/14/2024 10:47 AM CDT) Narrative Nichol Adkins MD - 12/14/2024 10:47 AM CDT Nichol Adkins MD 12/14/2024 11:46 AM HEART RATE TRACING INTERPRETATION Patient: Isabel Morales : 1990 Date of test: 12/14/2024 Strip Time Segment: 0810 to 0850 ANN-MARIE/Acct: [id number] Admitting Physician: Shen Peraza MD Gestational Age: 31w4d JOHANN of 02/11/2025, by Other Basis Reason for Non-Stress test: bleeding Is Patient Having Contractions?: Yes Contractions / Frequency: 3-4.5 Contractions Duration (range in sec): 60-80 Contractions Strength By Palpation: Mild Palpated Resting Tone: Soft Patient Perception of Contractions: tightening/cramping Movement: Present Baseline FHR: 135 Baseline Variability: Moderate Accelerations: Present Age Appropriate Accelerations: 15 X 15;2 in 20 Decelerations / Type: None Acoustic Stimulator: (not recorded) Nonstress Test Interpretation: (not recorded) Result: Expected result Provider notification: N/A per policy us Shen Peraza MD OB PROCEDURE ORD Final R esult * (ABNORMAL) FERRITIN (12/13/2024 11:58 AM CDT) Pathologist [facility] FERRITIN 14.6(L) 15.0 - 150.0 ng/mL 12/13/2024 1:18 PM CDT [facility] Blood BLOOD SPECIMEN / Unknown Non-Lab Venipuncture / Unknown 12/13/2024 11:58 AM CDT 12/13/2024 12:29 PM CDT us Caitlin Ornelas ASSISTANCE REPRESENTATIVE CHEMISTRY Final Res ult [facility] [address] [place] [address], * (ABNORMAL) CBC WITH AUTO DIFFERENTIAL (12/13/2024 12:10 AM CDT) WHITE BLOOD COUNT 12.5(H) 4.5 - 11.0 thou/cu mm 12/13/2024 12:22 AM CDT [facility] RED BLOOD COUNT 3.80(L) 4.00 - 5.20 mil/cu mm 12/13/2024 12:22 AM CDT [facility] HEMOGLOBIN 10.8(L) 12.0 - 16.0 g/dL 12/13/2024 12:22 AM [facility] HEMATOCRIT 32.8(L) 33.0 - 51.0 % 12/13/2024 12:22 AM [facility] MCV 86 80 - 100 fL 12/13/2024 12:22 AM [facility] MCH 28.4 26.0 - 34.0 pg 12/13/2024 12:22 AM [facility] MCHC 32.9 32.0 - 36.0 g/dL 12/13/2024 12:22 AM [facility] RDW 14.0 11.5 - 15.5 % 12/13/2024 12:22 AM [facility] PLATELET COUNT 244 140 - 440 thou/cu mm 12/13/2024 12:22 AM [facility] MPV 11.2(H) 6.5 - 11.0 fL 12/13/2024 12:22 AM [facility] NRBC 0.0 % 12/13/2024 12:22 AM [facility] ABS NRBC 0.0 thou /cu mm 12/13/2024 12:22 AM [facility] % NEUT 86.1 % 12/13/2024 12:22 AM [facility] % LYMPH 12.0 % 12/13/2024 12:22 AM [facility] % MONO 1.1 % 12/13/2024 12:22 AM [facility] % EOS 0.2 % 12/13/2024 12:22 AM [facility] % BASO 0.2 % 12/13/2024 12:22 AM [facility] % IMMATURE GRAN (METAS,MYELOS,SC OS) 0.4 % 12/13/2024 12:22 AM [facility] ABSOLUTE NEUTROPHILS 10.7(H) 1.7 - 7.0 thou/cu mm 12/13/2024 12:22 AM CDT [facility] ABSOLUTE LYMPHOCYTES 1.5 0.9 - 2.9 thou/cu mm 12/13/2024 12:22 AM CDT [facility] ABSOLUTE MONOCYTES 0.1 <0.9 thou/cu mm 12/13/2024 12:22 AM CDT [facility] ABSOLUTE EOSINOPHILS 0.0 <0.5 thou/cu mm 12/13/2024 12:22 AM CDT [facility] ABSOLUTE BASOPHILS 0.0 <0.3 thou/cu mm 12/13/2024 12:22 AM CDT [facility] ABSOLUTE IMMATURE GRANULOCYTES(MET ,MYELOS,PROS) 0.1 <0.3 thou/cu mm 12/13/2024 12:22 AM CDT [facility] Blood BLOOD SPECIMEN / Unknown Non-Lab Venipuncture / Unknown 12/13/2024 12:10 AM CDT 12/13/2024 12:19 AM CDT Shen Peraza MD HEMATOLOGY Final Re sult [facility] [address] [place] [id number], * TYPE & SCREEN (12/13/2024 12:10 AM CDT) Pathologist [facility] ABORH A Rh Positive 12/13/2024 12:56 AM CDT [facility] ANTIBODY SCREEN Negative Negative 12/13/2024 12:56 AM CDT [facility] SPECIMEN EXPIRATION DATE/TIME 12/16/24 23:59 12/13/2024 12:56 AM CDT [facility] Blood BLOOD SPECIMEN / Unknown Non-Lab Venipuncture / Unknown 12/13/2024 12:10 AM CDT 12/13/2024 12:19 AM CDT Shen Peraza MD BLOOD BANK Final Re sult Performing Organization Address City/[facility]/ZIP Co de Phone Number [facility] [address] [place] [address], * HPV HIGH RISK (11/18/2022 12:00 PM CDT) TYPE 16 Negative Negative 11/23/2022 3:21 PM CDT [facility] TYPE 18 Negative Negative 11/23/2022 3:21 PM CDT [facility] OTHER HIGH RISK TYPES Negative Negative 11/23/2022 3:21 PM CDT [facility] Other (Cervical) 11/18/2022 12:00 PM CDT 11/20/2022 11:15 AM CDT Narrative [facility] - 11/23/2022 3:21 PM CDT HPV types 16, 18, 31, 33, 35, 39, 45, 51, 52, 56, 58, 59, 66 and 68 DNA were undetectable or below the pre-set threshold. Methodology: Chantel Brent 4800 HPV Test Terra [facility] Final Resu lt Performing Organization Address City/[facility]/ZIP Co de Phone Number [facility] [address] [place] [address], from Last 3 Months or Most Recently Relevant to Health Maintenance Insurance [place] [employer] Advance Directives * Full Code (Latest Code Status on File) Date Activated Date Inactivated Comments 12/12/2024 10:39 PM 12/15/2024 9:06 PM Question Answer Comments Code Status Discussion: Reviewed Preferences Care Teams Formal Service Waiter Relationship Specialty Start Date End Date [facility] [address] [place] [address] PCP - General 12/13/24
--- OUTSIDE RECORDS SUMMARY | 2025-01-22 09:33 | XMS_ITS | Clinical Summary ---
Author Organization [facility] Address [address] [place] [address] Care Team Providers Care Political Science Instructor Name Role Phone No Ref-Primary, Physician Primary Care Provider Tabby Park MD Unavailable [phone] Encounters Date Type Department Care Team Description 01/10/2025 9:30 AM CDT Office Visit [facility] Maternal Medicine [place] [address] [place] [phone] Lorenzo Choi MD [place], Renetta Nicole MD Placenta previa in third trimester (Primary Dx) 01/10/2025 8:59 AM CDT - 01/10/2025 11:59 PM CDT Hospital Encounter [facility] Medicine [facility] [address] [place] [phone] Lorenzo Choi MD [place], Renetta Nicole MD Placenta previa in third trimester Discharge Disposition: Home or Self Care 01/10/2025 Travel 12/20/2024 10:30 AM CDT Office Visit [facility] Medicine [facility] [address] [place] [phone] Lorenzo Choi MD Placenta previa in third trimester (Primary Dx); Placenta previa in second trimester 12/20/2024 10:00 AM CDT - 12/20/2024 11:59 PM CDT Hospital Encounter [facility] Maternal Medicine [facility] [address] [place] [phone] Lorenzo Choi MD Complete placenta previa nos or without hemorrhage, second trimester Discharge Disposition: Home or Self Care 12/20/2024 Travel 11/18/2024 12:00 PM CDT Office Visit [facility] Medicine [facility] [address] [facility] [place] [phone] Terrell Snow MD Maulik, Devika, MD Complete placenta previa nos or without hemorrhage, second trimester (Primary Dx); Multigravida of advanced maternal age in second trimester 11/18/2024 11:28 AM CDT - 11/18/2024 11:59 PM CDT Hospital Encounter [facility] Medicine [facility] [address] [facility] [address] [place] [phone] Terrell Snow MD Complete placenta previa nos or without hemorrhage, second trimester Discharge Disposition: Home or Self Care 11/18/2024 Travel from Last 3 Months Social History Tobacco Use Types Packs/Day Years Used Date Smoking Tobacco: Never Assessed Estimated Date of Delivery Comme nts Yes 02/11/2025 Based on Ultraso und Sex and Gender Information Value Date Recorded Sex Assigned at Not on file Legal Sex Female 1:23 PM CDT Gender Identity Not on file Sexual Orientation Not on file Plan of Treatment Health Maintenance Due Date Last Done Comments ADVANCE CARE PLANNING 1990 ANNUAL REVIEW OF HM ORDERS 1990 DIABETES SCREENING 1990 HEPATITIS B VACCINE (2 of 3 - 3-dose series) 09/16/1989 08/19/1989, 08/03/1989 YEARLY PREVENTIVE VISIT 02/11/1991 PHQ-2 (once per calendar year) 2024 MATERNAL SCREENING DISCUSSION 07/16/2024 OBGCT (OB) 10/22/2024 TDAP VACCINE () 11/12/2024 COVID-19 VACCINE ( season) 2024 10/31/2024, 01/17/2024, 12/13/2022, Additional history exists GROUP B STREP SCREENING 01/14/2025 PAP 11/18/2025 11/18/2022 DTAP/TDAP/TD VACCINE (9 - Td or Tdap) 12/06/2034 12/06/2024, 08/10/2020, 08/25/2006, Additional history exists ZOSTER VACCINE (1 of 2) 02/11/2038 MENINGITIS VACCINE Completed 08/25/2006 HPV VACCINE Completed 03/18/2007, 08/2 03/2006, 09/08/2006 HEPATITIS C SCREENING Completed 04/03/2020 HIV SCREENING Completed 04/03/2020 INFLUENZA VACCINE Completed 12/14/2024, , 12/13/2022, Additional history exists RSV VACCINE Completed 12/20/2024 PNEUMOCOCCAL VACCINE: PEDIATRICS (0 to 5 YEARS) AND AT-RISK PATIENTS (6 to 49 YEARS) Aged Out No longer eligible based on patient's age to complete this topic Procedures Procedure Name Priority Date/Time Associated Diagnosis Comments [facility] US COMPREHENSIVE SINGLE F/U Routine 01/10/2025 9:46 AM CDT Placenta previa in third trimester [facility] US COMPREHENSIVE SINGLE F/U Routine 12/20/2024 10:45 AM CDT Complete placenta previa nos or without hemorrhage, second trimester [facility] US COMPREHENSIVE SINGLE F/U Routine 11/18/2024 12:18 PM CDT Complete placenta previa nos or without hemorrhage, second trimester from Last 3 Months Results * [facility] US Comprehensive Single F/U (01/10/2025 9:46 AM CDT) Only the most recent of3 resultswithin the time period is included. Anatomical Region Laterality Modality Ultrasound 01/10/2025 9:02 [...] MORALES Study Date: 01/10/2025 9:02am Pat. NO: [id number] Referring MD: UMER BETH Site: Manometer Technician: Mara Lincoln RDMS : 1990 Age: 34 [...] 7 lb 4 oz EFW by Hadlock ([id number]) Head / Face / Neck Biometry: Bulb Planter 6.0 mm CM 9.5 mm ANATOMY ----- The following structures appear normal: Head / Neck Cranium. Head size. Head shape. Lateral ventricles. Midline falx. Cavum septi pellucidi. Cerebellum. Cisterna magna. Thalami. Heart / Thorax 4-chamber view. RVOT view. LVOT view. 6-fghlca-fcaxwlp view. Diaphragm. Abdomen Stomach. Kidneys. Bladder. Spine [...] scheduled to have a C section in [place], and we discussed that given the absence [...] the patient (reviewing medical records/tests), in direct hner-ni-ncah contact with the patient during the visit counseling and discussing the plan of care and documenting the visit in the electronic medical record. Procedure Note Renetta Chen MD - 01/10/2025 Comp Follow Up ----- Pat. Name: ISABEL MORALES Study Date: 01/10/2025 9:02am Pat. NO: [id number] Referring MD: UMER BETH Site: Manometer Technician: Mara FRANKIE Lincoln : 1990 Age: 34 ----- INDICATION ----- [...] EFW (lb,oz) 7 lb 4oz EFW by Hadlock([id number]) Head / Face / Neck Biometry: Bulb Planter 6.0mm CM 9.5mm ANATOMY ----- The following structures appear normal: Head / Neck Cranium. Head size. Head shape.Lateral ventricles. Midline falx. Cavum septi pellucidi. Cerebellum.Cisterna magna. Thalami. Heart / Thorax 4-chamber view. RVOT view. LVOT view.0-uqhxhg-ugsabme view. Diaphragm. Abdomen Stomach. Kidneys. Bladder. Spine [...] scheduled to have a C section in [place], and we discussed thatgiven the absence of [...] see the patient(reviewing medical records/tests), in direct gwbs-iu-pjuh contact with the patient during the visitcounseling [...] accreta spectrum unlikely. us Lorenzo Choi MD [facility] ORDERABLES Edit ed Result - Final from Last 3 Months Insurance [facility] OUT OF STATE BCBS OUT OF STATE Care Teams Political Science Instructor Relationship Specialty Start Date End Date No Ref-Primary, Physician PCP - General 09/12/24 Tabby Park MD [address] [address] Assigned OBGYN Provider 12/13/24
--- OUTSIDE RECORDS SUMMARY | 2025-01-22 09:33 | XMS_ITS ---
Author Organization [facility] Source Produ ction (ClinicalSummary Clone) Address Unknown Care Team Providers Care Supervisor Waterproofing Name Role Phone Unavailable Primary Care Physician Unavailab le Results * [UNITY] ANEUPLOIDY NIPT Performed by: [place] Component Value Range Date Fraction 17.8% 07/25/2024 09 :28 pm UTC Sex Chromosome Aneuploidy NOT DETECTED 09:28 pm UTC Monosomy X LOW RISK <1 in 10,000 2024 09:28 pm UTC Trisomy 13 LOW RISK <1 in 10,000 2024 09:28 pm UTC Trisomy 18 LOW RISK <1 in 10,000 2024 09:28 pm UTC Trisomy 21 LOW RISK <1 in 10,000 2024 09:28 pm UTC Sex MALE 07/25/2024 09:2 8 pm UTC Gestation WEBSTER 07/26/19 09:28 pm UTC For detailed report, see PDF See PDF 07/25/2024 09:28 pm UTC 07/25/2024 09:2 8 pm UT Social History Observation Value Start Date End Date
--- OUTSIDE RECORDS SUMMARY | 2025-01-22 09:33 | XMS_ITS | Encounter Summary ---
Author Organization [facility] Address [facility] [place] [address] Care Team Providers Care Bailer Operators Supervisor Name Role Phone No Ref-Primary, Physician Primary Care Provider Tabby Park MD Unavailable [phone] Encounter Details Date Type Department Care Team (Latest Contact Info) Description 01/10/2025 Travel Social History Tobacco Use Types Packs/Day [...] on filedocumented in this encounter Care Teams Bailer Operators Supervisor Relationship Specialty Start Date End Date No Ref-Primary, Physician PCP - General 09/12/24 Tabby aPrk MD [address] [facility] [address] [place] [address] Assigned OBGYN Provider 12/13/24 documented as of this encounter
[2025-01-22 10:09] LABS: Appearance Urine Clear (Clear)
--- NOTE | 2025-01-22 10:27 | ED_ITS ---
HPI - General Adult General Date Seen: 01/22/25 Chief complaint: Headache/Migraine Stated complaint: Gave 01/16, HBP, headache Time Seen by Provider: 01/22/25 09:45 Source: patient Mode of arrival: ambulatory Limitations: no limitations History of Present Illness HPI narrative: Patient is a 34-year-old female who is 6 days presenting to the emergency department for a headache and hypertension. She states she woke up this morning around 430 with a headache. She took her blood pressure at that time and was 146 systolic. She she has been taking pain medications scheduled every 6 hours for her incisional pain from her . She woke up this morning with the headache without is was odd that she would have a headache despite taking all this pain medication. She states the headache is very mild and tolerable but when she recheck her blood pressure again at 09:00 it was still elevated so she came to the emergency department for evaluation. She has never had issues with hypertension before. Has not had preeclampsia in the past. Last checked her blood pressure couple days ago and it was in the 120s systolic. No other concerns noted. Denies fevers, chills, chest pain, shortness of breath, abdominal pain, lightheadedness, dizziness, weakness, numbness. No other concerns noted at this time. Related Data Home Medications ?Medication ?Instructions ?Recorded ?Confirmed cholecalciferol (vitamin D3) 10 10 mcg PO QDAY 3 01/22/25 mcg (400 unit) capsule docosahexaenoic acid 200 mg 200 mg PO DAILY 07/15/24 1 03/24/24 capsule ( DHA) psyllium husk 0.4 gram capsule 0.4 g PO ONCE 09/12/24 01/22/25 (Daily Fiber) ferrous sulfate 325 mg (65 mg 325 mg PO Q OTHER DAY 01/22/25 iron) tablet (Feosol) docusate sodium 100 mg capsule 100 mg PO DAILY 5 01/22/25 (Colace) Previous Rx's ?Medication ?Instructions ?Recorded docusate sodium 100 mg tablet 100 mg PO BID PRN #60 ta bs 01/18/25 ibuprofen 600 mg tablet 600 mg PO Q6H PRN #60 tabs 1 Allergies Allergy/AdvReac Type Severity Reaction Status Date / Time Penicillins Allergy Unknown Joint Pain Verified 01/22/25 09:43 Sulfa (Sulfonamide AdvReac Unknown Rash Verified 01/22/25 09:43 Antibiotics) Review of Systems Status of ROS: Reports: 10 or more systems reviewed and unremarkable except as noted in History and below [facility] Medical History History of precipitous delivery ?Z87.59 - Personal history of other complications of , childbirth and the puerperium (ICD-10) Placenta previa ?O44.00 - Complete placenta previa NOS or without hemorrhage, unspecified trimester (ICD-10) Vaginal delivery ?O80 - Encounter for full-term uncomplicated delivery (ICD-10) Surgical History Platinum teeth removed ?K08.409 - Partial loss of teeth, unspecified cause, unspecified class (ICD- 10) Family History Grandmother Myocardial infarction Non-Hodgkin lymphoma Diabetes Paternal Grandmother Parkinsons Father High blood pressure High cholesterol Sarcoidosis Thyroid disease Grandfather Diabetes Sister Diabetes HELLP (hemolytic anemia/elev liver enzymes/low platelets in ) Social History Narrative: SOCIAL HISTORY: Education: PhD 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 Partner: Ming Relationship status Lives with: Ming and 2 kids, 2dogs and 2 cats Abuse: Denies past/present Special Diet: denies RISK FACTORS Exercise Times/wk: Depression/Anxiety: denies, some PP anxiety which resolved on its own Seat Belt Use: Smoking: Denies Alcohol/day: none currently Drug Use: Denies past/present What is your current living situation?: I presently have a place to live Problems where you live: no known problems In the past 12 months, utilities in danger of being shut off: no In past 12 months, lack of transportation kept you from medical appts, meetings, work, or getting things needed for daily living: no How hard is it for you to pay for the very basics like food, housing, medical care, and heating: not very hard In the past 12 mos, have been you worried that your food would run out before you had money to buy more?: never true In the past 12 mos, the food you bought just didn't last and you didn't have money to buy more?: never true Smoking Status: Never smoker How often does anyone, including family, friends and others, physically hurt you : never How often does anyone, including family, friends and others, insult or talk down to you: never How often does anyone, including family, friends and others, threaten you with harm: never How often does anyone, including family, friends and others, scream or curse at you: never Exam Narrative: Exam Narrative: Const: Well-nourished, Well-developed, in mild distress Eyes: PERRL, no conjunctival injection, and symmetrical lids HENT: Atraumatic external nose and ears. Moist mucous membranes. Neck: Symmetric, trachea midline, No thyromegaly. CVS: RRR, No murmurs or gallops. Peripheral pulses 2+ and equal in all extremities RESP: Unlabored respiratory effort. Clear to auscultation bilaterally. GI: Nontender/Nondistended, No rebound or guarding. MSK:Extremities w/o deformity, Normal Active ROM Skin: Warm, Dry. No rashes or lesions. Well-healing incisional site Neuro: Normal Muscle tone, No focal neurological deficits. Psych: Awake, Alert, & Oriented x3. Appropriate mood and affect. Const: Vital Signs, click to edit/add: Vital Signs - 24 hr 01/22/25 09:32 01/22/25 09:59 01/22/25 10:00 Temperature 98.1 F Pulse Rate [Right Pulse Oximeter] 64 Respiratory Rate 18 Blood Pressure [Ri ght Upper Arm] 144/86 H Pulse Oximetry 100 97 97 Oxygen Delivery Me thod Room Air 01/22/25 10:02 01/22/25 10:10 01/22/25 10:15 Temperature Pulse Rate [Right Pulse Oximeter] Respiratory Rate Blood Pressure [Ri ght Upper Arm] 135/66 Pulse Oximetry 97 97 Oxygen Delivery Me thod 01/22/25 10:17 01/22/25 10:20 01/22/25 10:30 Temperature Pulse Rate [Right Pulse Oximeter] Respiratory Rate Blood Pressure [Ri ght Upper Arm] 122/83 Pulse Oximetry 97 97 Oxygen Delivery Me thod 01/22/25 10:30 01/22/25 10:32 Temperature Pulse Rate [Right Pulse Oximeter] Respiratory Rate Blood Pressure [Ri ght Upper Arm] Pulse Oximetry 98 97 Oxygen Delivery Me thod Course Vital Signs Vital signs: Initial Vital Signs Temperature 98.1 F 01/22/25 09:32 Temperature Source Temporal Artery Scan 01/22/25 09:32 Pulse Rate 64 01/22/25 09:32 Pulse Rhythm Regular 01/22/25 09:32 Pulse Strength 3+ Normal 01/22/25 09:32 Respiratory Rate 18 01/22/25 09:32 Blood Pressure 144/86 H 01/22/25 09:32 Blood Pressure Mean 105 01/22/25 09:32 Blood Pressure Position Sitting 01/22/25 09:32 Pulse Oximetry 100 01/22/25 09:32 Oxygen Delivery Method Room Air 01/22/25 09:32 Vital Signs Temperature 98.1 F 01/22/25 09:32 Pulse Rate 64 01/22/25 09:32 Respiratory Rate 18 01/22/25 09:32 Blood Pressure 144/86 H 01/22/25 09:32 Pulse Oximetry 100 01/22/25 09:32 Oxygen Delivery Method Room Air 01/22/25 09:32 Temperature 98.1 F 01/22/25 09:32 Pulse Rate 64 01/22/25 09:32 Respiratory Rate 18 01/22/25 09:32 Blood Pressure 122/83 01/22/25 10:30 Pulse Oximetry 97 01/22/25 10:32 Oxygen Delivery Method Room Air 01/22/25 09:32 Medical Decision Making [facility] Narrative Medical decision making narrative: Patient is a 34-year-old female presenting to the emergency department for a headache and hypertension. She is within the time frame where we would be concerned about preeclampsia in the setting. The 2 blood pressures at home in the 1 done here in the emergency department at both the 140 systolic so she would meet criteria for preeclampsia. She does have treatment resistant headache which does have concern of severe features. Will check a urinalysis, CBC, liver panel, magnesium, BMP. Repeat blood pressures are on the down swing and are within normal limits currently. Her blood pressure has improved and is currently 122/83. Lab work shows no concerning abnormalities. Her hemoglobin it is roughly around baseline. No signs of thrombocytopenia or elevated liver enzymes. Creatinine within normal limits. Urinalysis shows no concerning findings. I did speak to Dr. Toribio, of Ob who recommends outpatient follow-up in a blood pressure check tomorrow and [facility]. The patient is agreeable to this plan. She will be discharged. Lab Data Labs: Lab Results 01/22/25 01/22/25 Range/Units 10:02 10:35 WBC 7.12 (4.50-11.00) K/uL RBC 3.28 L (4.00-5.20) m/uL Hgb 9.6 L (12.0-16.0) gm/dL Hct 29.4 L (33.0-51.0) % MCV 90 (80-100) fL MCH 29 (26-34) pg MCHC 33 (32-36) gm/dL RDW Coeff of Luis 14.1 (11.5-15.5) % Plt Count 248 (140-440) K/uL Neut % (Auto) 64.8 (42.0-72.0) % Lymph % (Auto) 27.5 (20-44) % [place] % (Auto) 5.6 (0.0-11.0) % Eos % (Auto) 1.7 (0.0-7.0) % Baso % (Auto) 0.1 (0.0-3.0) % Neut # (Auto) 4.61 (1.7-7.0) K/uL Lymph # (Auto) 1.96 (0.90-2.90) K/uL [place] # (Auto) 0.40 (0.00-0.90) K/UL Eos # (Auto) 0.12 (0.00-0.50) K/uL Baso # (Auto) 0.01 (0.00-0.30) K/uL Abs Immat Gran (auto) 0.02 (0.00-0.30) K/uL Imm/Tot Granulo (auto) 0.3 % Sodium 135 (135-149) mmol/L Potassium 4.0 (3.6-5.1) mmol/L Chloride 105 (96-114) mmol/L Carbon Dioxide 25 (20-32) mmol/L Anion Gap 5 L (7-15) mEq/L BUN 14 (5-24) mg/dL Creatinine 0.7 (0.5-1.5) mg/dL Estimated GFR 115 ml/min Glucose 84 (60-115) mg/dL Calcium 8.3 L (8.4-10.6) mg/dL Magnesium 1.9 (1.5-2.6) mg/dL Total Bilirubin 0.3 (0.1-1.5) mg/dL Direct Bilirubin 0.2 (0.0-0.5) mg/dL AST 22 (12-35) U/L ALT 19 (4-35) U/L Alkaline Phosphatase 92 (40-150) U/L Total Protein 6.3 (6.0-8.3) g/dL Albumin 3.3 (3.3-5.0) g/dL Urine Color Yellow (Yellow) Urine Appearance Clear (Clear) Urine pH 6.5 (5.0-8.5) Ur Specific [place] 1.010 (1.000-1.030) Urine Protein Negative (Negative) Urine Glucose (UA) Negative (Negative) Urine Ketones Negative (Negative) Urine Blood 2+ A (Negative) Urine Nitrite Negative (Negative) Urine Bilirubin Negative (Negative) Urine Urobilinogen 0.2 (0.2-1.0) Ur Leukocyte Esterase Negative (Negative) Urine RBC 2-5 A (0-2) Urine WBC 0-2 (0-5) Ur Squamous Epith Cells Few (None-Few) Urine Bacteria None (None) Discharge Plan Discharge Clinical Impression: hypertension Patient Disposition: Home, Self-Care Condition: Stable Additional Instructions: Urine the state so it is reasonable to continue checking blood pressure. There is no signs of preeclampsia at this time but it is recommended you [facility] for a blood pressure check. Return to emergency department for new or worsening symptoms. Prescriptions: No Action cholecalciferol (vitamin D3) 10 mcg (400 unit) capsule 10 mcg PO QDAY psyllium husk [Daily Fiber] 0.4 gram capsule 0.4 g PO ONCE ferrous sulfate [Feosol] 325 mg (65 mg iron) tablet 325 mg PO Q OTHER DAY DHA 200 mg capsule 200 mg PO DAILY docusate sodium [Colace] 100 mg capsule 100 mg PO DAILY ibuprofen 600 mg tablet 600 mg PO Q6H PRNQty: 60 0RF docusate sodium 100 mg tablet 100 mg PO BID PRNQty: 60 0RF Follow Up/Referrals: Provider,Not a Local [Primary Care Provider, Family Practice] Stand Alone Forms: [email or web address] Info Instructions
[2025-01-22 10:44] LABS: Hematocrit* 29.4 % (33.0-51.0); Hemoglobin* 9.6 gm/dL (12.0-16.0); Immature Granulocytes Abs Auto 0.02 K/uL (0.00-0.30); Immature Granulocytes Pct Auto 0.3 %; Lymphocytes Absolute Auto 1.96 K/uL (0.90-2.90); Mean Corpuscular HGB Conc 33 gm/dL (32-36); Mean Corpuscular Hemoglobin 29 pg (26-34); Mean Corpuscular Volume 90 fL (80-100); RDW Coefficient of Variation % 14.1 % (11.5-15.5); Red Blood Count* 3.28 m/uL (4.00-5.20); White Blood Count* 7.12 K/uL (4.50-11.00)
[2025-01-22 10:46] LABS: Slide Review Reflex No
[2025-01-22 10:56] LABS: Albumin* 3.3 g/dL (3.3-5.0); Chloride* 105 mmol/L (96-114)
[2025-01-22 10:57] LABS: Potassium* 4.0 mmol/L (3.6-5.1); Sodium* 135 mmol/L (135-149)
[2025-01-22 10:59] LABS: Anion Gap 5 mEq/L (7-15); Blood Urea Nitrogen* 14 mg/dL (5-24); Carbon Dioxide* 25 mmol/L (20-32); Creatinine* 0.7 mg/dL (0.5-1.5); Estimated Glomerular Filt Rate 115 ml/min
[2025-01-22 11:00] LABS: Alanine Aminotransferase* 19 U/L (4-35); Alkaline Phosphatase* 92 U/L (40-150); Aspartate Amino Transferase* 22 U/L (12-35); Bilirubin Direct* 0.2 mg/dL (0.0-0.5); Bilirubin Total* 0.3 mg/dL (0.1-1.5); Calcium* 8.3 mg/dL (8.4-10.6); Glucose* 84 mg/dL (60-115); Total Protein* 6.3 g/dL (6.0-8.3)
== END 2025-01-22 11:35 | disposition home or self-care (01) ==
PROVIDERS: Emergency Provider Student in an Organized Health Care Education/Training Program
DX: O16.5 Unspecified maternal hypertension, complicating the puerperium (principal); O99.893 Other specified diseases and conditions complicating puerperium; R51.9 Headache, unspecified
CPT/HCPCS: 36415; 80048; 80076; 81001; 83735; 85025; 99283; 99284

== ENCOUNTER 2025-01-24 14:36 | Outpatient (CLI) | payer BC, SELFPAY | END 2025-01-24 14:37 | disposition home or self-care (01) | PROVIDERS: Visit Provider Obstetrics & Gynecology | DX: I10 Essential (primary) hypertension (principal); R51.9 Headache, unspecified | CPT/HCPCS: 82565; 84450; 84460; 84520 ==

== ENCOUNTER 2025-02-17 09:29 | Outpatient (CLI) | payer BC, SELFPAY ==
--- NOTE | 2025-02-17 14:48 | W.PM.LAC.MC ---
Consult Note - Mom Date of Visit Date of visit: 02/17/25 Reason for consultation: Assistance Needed (36 wk preemie now 1m 1 d old, here to assess milk transfer) Visit Code: Visit Patient's Information Phone number: [phone] : 3 Para: 3 Allergies Penicillins Allergy (Unknown, Verified 02/02/25 14:30) Joint Pain Sulfa (Sulfonamide Antibiotics) Adverse Reaction (Unknown, Verified 02/02/25 14:30) Rash Mother's Medical History: Medical History (Updated 02/06/25 @ 00:01 by Background Daemon) History of precipitous delivery ?Z87.59 - Personal history of other complications of , childbirth and the puerperium (ICD-10) Placenta previa ?O44.00 - Complete placenta previa NOS or without hemorrhage, unspecified trimester (ICD-10) Vaginal delivery ?O80 - Encounter for full-term uncomplicated delivery (ICD-10) Work Plans: returns to work May 2025 Delivery Information Delivery type: Primary C/S; Non-Labored Gestational Age: 36+2 Gestational Weight For Age: AGA Weight: 2.95 kg Discharge Weight: 2.696 kg Percentage weight loss: 8.7 Baby's Information Baby's Age at Visit: 1m 1d Baby's Provider or Clinic: [facility] Jaundice: No Past Experience Past Experience: Yes Current Frequency of Day Feedings: every 3 hrs Frequency of Night Feedings: 4 hr stretch x2 Both Breasts: Yes (when offered) Suck: weak Latch: beginning to latch better Length of Time: 10-18 min Goals: 1 year Pumping Pumping: Yes Quantity Pumped: getting 7-8 oz more/day than he needs Supplementing EBM Supplement: Yes (taking 3-4 oz/feeding) Formula Supplement: No Baby Elimination Number of Wet Diapers a Day: ea feeding Number of BM a Day: at least 4/day Breast/Nipple Condition Breast Information: Breasts are symmetrical with rounded lower quadrants, intramammary distance is less than 1.5 inches. No erythema. Nipples are supple, everted prior to feeding. Breast Shape: Round Engorgement: No Maternal Nipple Condition - Left: Common Nipple Maternal Nipple Condition - Right: Common Nipple Sore Nipples: No Interventions for Sore Nipples: Other (silverette) Baby Assessment Skin: Normal Tongue/frenulum: Restricted-frenulum attaches at tip of tongue, heart shaped (not completely at tip, about 2mm back) Palate: Average Lips: Relaxed and Symmetrical Jaw Alignment: Symmetrical Mucosa: [place], moist Onsite Observation Pre-Feed weight: 3.896 kg Post-Feed weight: 3.932 kg Milk Transferred (mL): 36 Position: Cross cradle and Football Attachment/latch-on achieved: Easily Suck pattern: Suck burst and normal rest (for 1st 5 minutes) and Extended rest phase, lots of stimulation to keep baby nursing Swallow: Audible, consistent and Occasionally Behavior following feed: Alert, fussy Pre-Nursing Left Nipple: Within Normal Limits Pre-Nursing Right Nipple: Within Normal Limits Post-Nursing Left Nipple: Within Normal Limits Post-Nursing Right Nipple: Within Normal Limits Assessments/Interventions Assessments/Interventions: Alexsander latched? to mom's LEFT breast, latched easily with wide open mouth but also on and off after about 5 minutes of nursing and stayed nursing for 11 minutes. Transferred 24 ml of milk Alexsander then latched to mom's RIGHT breast, latched more easily in football hold and nursed for another 6 minutes, then would not stay latched Transferred 12 ml of milk. Total volume transferred: 36 ml Very fussy after coming off the breast; took 60ml of mom's EBM she brought with her to the appt. Education provided: Asymmetric latch technique for wide/deep latch to increase milk, Transfer for baby and increase comfort for mom, Supply/demand nature of milk supply, Need for frequent stimulation/milk removal, Pumping for milk management and Milk collection, storage Feeding Plan: Continue offering several times/day to assess when he is transferring more milk; continue offering EBM after feedings until he is consistently taking less from bottle after BF. Discussed possible role of tongue tie in alexsander being able to latch deeply and effectively to transfer milk from the breast Given he was born at 36 weeks and is just now at full term - hard to know if another week or two will allow him to strengthen his suck sufficiently to transfer milk without tongue release given the severity of the tightness Mom took resources to consider Time Spent Time spent with patient (min): 90 Meds Home Medications and Allergies Home Medications ?Medication ?Instructions ?Recorded ?Confirmed ?Type cholecalciferol (vitamin D3) 10 10 mcg PO QDAY 11/18/22 02/02/25 History mcg (400 unit) capsule docosahexaenoic acid 200 mg 200 mg PO DAILY 07/15/24 02/02/25 History capsule ( DHA) psyllium husk 0.4 gram capsule 0.4 g PO ONCE 09/12/24 02/02/25 History (Daily Fiber) ferrous sulfate 325 mg (65 mg 325 mg PO Q OTHER DAY 12/06/24 02/02/25 History iron) tablet (Feosol) ibuprofen 600 mg tablet 600 mg PO Q6H PRN #60 tabs 01/18/25 02/02/25 Rx nifedipine 30 mg tablet,extended 30 mg PO BID #60 tabs 01/24/25 02/02/25 Rx release Allergies Allergy/AdvReac Type Severity Reaction Status Date / Time Penicillins Allergy Unknown Joint Pain Verified 02/02/25 14:30 Sulfa (Sulfonamide AdvReac Unknown Rash Verified 02/02/25 14:30 Antibiotics)
== END 2025-02-17 09:30 | disposition home or self-care (01) ==
LOC: OB LAC 09:31
PROVIDERS: Visit Provider Obstetrics & Gynecology
DX: Z39.1 Encounter for care and examination of lactating mother (principal)
CPT/HCPCS: G0463